=== PATIENT | male | born 1960 | race Caucasian/White ===

== ENCOUNTER 2020-06-24 09:16 | Outpatient (REF) | payer OTHER, SELFPAY ==
--- NOTE | 2020-06-24 | US_ITS ---
EXAMINATION: COLOR-FLOW DUPLEX IMAGING OF THE BILATERAL LOWER EXTREMITY ARTERIAL SYSTEM. VELOCITY MEASUREMENTS THROUGHOUT THE FEMORAL ARTERIES WITH ANKLE-BRACHIAL PERIPHERAL ARTERIAL TESTING. Interventional Radiologist: El Brooks M.D., F.S.I.R., F.A.C.R. CLINICAL INFORMATION: This is a 60-year-old male with bilateral claudication. Peripheral arterial disease. RIGHT FEMORAL RUNOFF VELOCITIES: The right common femoral artery measures 97 cm/s and triphasic. The right profunda femoral artery is 59 cm/s and is triphasic. Right proximal superficial femoral artery measures 104 cm/s and triphasic. Mid superficial femoral artery is 104 cm/s and triphasic. Distal right superficial femoral artery measures 73 cm/s and is triphasic. Right popliteal velocity measures 72 cm/s and is triphasic. The posterior tibial artery velocity measures 118 cm/s and was monophasic. LEFT FEMORAL RUNOFF VELOCITIES: The left common femoral artery measures 84 cm/s and triphasic. The left profunda femoral artery is 53 cm/s and is triphasic. Left proximal superficial femoral artery measures 93 cm/s and triphasic. Mid superficial femoral artery is 99 cm/s and triphasic. Distal left superficial femoral artery measures 61 cm/s and is triphasic. Left popliteal velocity measures 67 cm/s and is triphasic. The posterior tibial artery velocity measures 101 cm/s and was monophasic. US/US arterial duplex LE BI IMPRESSION: 1. Normal bilateral resting peripheral arterial testing without evidence of hemodynamically significant stenosis.
== END 2020-06-24 09:17 | disposition home or self-care (01) ==
LOC: HO.US 09:16
PROVIDERS: PCP Family Medicine; Visit Provider Family Medicine
DX: M79.604 Pain in right leg (principal); M79.605 Pain in left leg
CPT/HCPCS: 93925

== ENCOUNTER 2020-09-08 22:18 | Emergency (ER) | payer OTHER, SELFPAY ==
[2020-09-08 22:26] VITALS: BP 156/90; BP 200/100; PULSE 86; PULSE 90; RESP 20; TEMP 37.1; O2SAT 100; O2SAT 98; BMI 26.6
--- NOTE | 2020-09-08 22:44 | ED_ITS ---
HPI - General Adult General Chief complaint: General Medical Stated complaint: [facility] Time Seen by Provider: 09/08/20 22:25 Source: patient and EMS Mode of arrival: EMS Limitations: no limitations History of Present Illness HPI narrative: Patient comes to emergency room by EMS. According to EMS, they were called by [employer] police as the patient fell asleep in the [employer] drive-through. Patient states that he was hungry, the line was taking too long and he dozed off. Initially, patient denied using drugs or alcohol. Patient has a small bleeding side over his right hand, I asked the patient if he injected any drugs, patient states he might have used heroin. Patient did not get Narcan, patient is awake, alert, normal vitals and cooperative. Patient denies suicidal or homicidal ideation MD complaint: OD Related Data Previous Rx's Medication Instructions Recorded tamsulosin 0.4 mg capsule 0.4 mg PO DAILY #30 cap 07/26/20 Allergies Allergy/AdvReac Type Severity Reaction Status Date / Time No Known Allergies Allergy Verified 09/08/20 22:26 [No Known Allergies*] Review of Systems Review of Systems: Constitutional : No Weight loss, No Fever, No Chills, No Night Sweats, No Fatigue, No Malaise ENT/Mouth : No Hearing loss, No Ear Pain, No Nasal Congestion, No Sinus Pain, No Hoarseness, No sore throat, No Rhinorrhea, No Swallowing Difficulty Eyes: No Eye Pain, No Swelling, No Redness, No Foreign Body, No Discharge, No Vision Changes Cardiovascular : No Chest Pain, No SOB, No Dyspnea on Exertion, No Orthopnea, No Edema, No Palpitations Respiratory : No Cough, No Sputum, No Wheezing, No Smoke Exposure, No Dyspnea Gastrointestinal : No Nausea, No Vomiting, No Diarrhea, No Constipation, No abdominal Pain, No Hematochezia, No Melena Genitourinary : no irregular bleeding, No Dysuria, No Urinary Frequency, No Hematuria, No Urinary Incontinence, No Urgency, No Flank Pain, No Urinary Flow Changes, No Hesitancy Musculoskeletal : No joint pain, No Myalgias, No Joint Swelling Skin : No Skin Lesions, No rash Neuro : No Weakness, No Numbness, No Paresthesias, No Loss of Consciousness, No Dizziness, No Headache Psych : No Anxiety/Panic, No Depression, No SI/HI, possible drug abuse Heme/Lymph: No Bruising, No Bleeding,No Lymphadenopathy Endocrine : No Polyuria, No Polydipsia, No Temperature Intolerance [facility] Past Medical History Medical History (Updated 09/09/20 @ 00:04 by Silvia Redman MD) Anxiety Hypertension Substance abuse Surgical History (Updated 09/08/20 @ 22:30 by Marge Vega) H/O prostatectomy Social History Social History Alcohol intake: never Smoking Status: Former smoker Smoked in Last 30 Days: No Use of substances other than those prescribed or required for medical reasons: No Advance Directives: No Advance Directives Information Provided: Yes Physical Exam Vital Signs: Vital Signs: Last Vital Signs Temp 98.8 F 09/08/20 22:26 Pulse 86 09/08/20 22:26 Resp 20 09/08/20 22:26 BP 156/90 H 09/08/20 22:26 Pulse Ox 100 09/08/20 22:26 Body Mass Index 26.6 Appearance: Alert. Oriented X3. No acute distress. Eyes: Pupils equal, round and reactive to light. ENT: Pharynx normal. Neck: Normal inspection. Neck supple. No lymph nodes noted. No crepitus CVS: Normal heart rate and rhythm. Pulses normal. Normal S1 and S2 Respiratory: No respiratory distress. Breath sounds normal. No Wheezing. No rales Abdomen: Soft and nontender. No rigidity. No distention. good BS x4 Skin: Skin warm and dry. There is a needle track alonzo on his right hand dorsal aspect Extremities: No lower extremity edema. No lower extremity edema. No Lacerations. No Rash Neuro: Oriented X 3. No motor deficit. No sensory deficit. Moving all extermities. No slurred speech. Course Course Course Narrative: Patient remains alert, calm and cooperative, oxygen saturation 94% and above. Patient did not receive Narcan. Patient ready for discharge Discharge Plan Discharge Clinical Impression: Overdose Qualifiers: Encounter type: initial encounter Injury intent: accidental or unintentional Qualified Code(s): T50.901A - Poisoning by unspecified drugs, medicaments and biological substances, accidental (unintentional), initial encounter Patient Disposition: Home, Self-Care Instructions: Adult Overdose (ED) Additional Instructions: Please stop using drugs. Please follow-up with your primary care physician tomorrow. If you have any worsening or new symptoms, please return to the emergency room or call 911 Prescriptions: No Action tamsulosin 0.4 mg capsule 0.4 mg PO DAILY Qty: 30 RF: 6
--- NOTE | 2020-09-08 23:10 | PC.NURSE ---
SECURITY TAKING BELONGING TO [employer].
[2020-09-09 00:59] VITALS: BP 136/82; PULSE 85; RESP 16; TEMP 37.1; O2SAT 97
== END 2020-09-09 01:00 | disposition home or self-care (01) ==
PROVIDERS: Emergency Provider Emergency Medicine
DX: T40.1X1A Poisoning by heroin, accidental (unintentional), initial encounter (principal); Y92.9 Unspecified place or not applicable; Z87.891 Personal history of nicotine dependence; Z71.51 Drug abuse counseling and surveillance of drug abuser
CPT/HCPCS: 99284

== ENCOUNTER 2021-03-13 12:40 | Emergency (ER) | payer OTHER, SELFPAY ==
[2021-03-13 12:47] VITALS: BP 152/88; PULSE 96; RESP 18; TEMP 36.6; O2SAT 99; BMI 26.4
[2021-03-13 12:50] VITALS: BP 164/77; PULSE 106
--- NOTE | 2021-03-13 12:55 | PC.NURSE ---
security called to do supervisor policy change clerks of patient
--- NOTE | 2021-03-13 13:20 | PC.NURSE ---
patient a&ox3, calm/cooporative, pt has drank 2 cups water, pt requested brothers phone number to call him for a ride when he gets discharged, will continue to monitor.
--- NOTE | 2021-03-13 13:43 | MHC.RECOVSUP ---
Recovery Support note: Patient is a 60 year old Wallisian speaking male who presented to [facility] via EMS after an accidental overdose. This senior grant writer met with patient to discuss his substance use and recovery support. Patient reports he used one bag of heroin. Discussed with patient the danger inherent in heroin use and the risk of overdose due to fentanyl. Patient acknowledged. Patient reports he does not want to use again after this experience. Patient reports he is prescribed Suboxone through the [facility] and he wanted to know when he could take his next dose. Encouraged patient to wait until tomorrow morning and take it after 7AM. Patient acknowledged. Patient reports he is prescribed 8mgs. Encouraged patient to be honest with his prescriber and discuss this situation with them. Encouraged patient to reach out to supports in the community.
--- NOTE | 2021-03-13 14:11 | ED.OVERDOSE ---
HPI - Overdose General Chief Complaint: Overdose Stated Complaint: UNRESP BEHIND THE WHEEL,4MG NARCAN W/GOOD RESULT Time Seen by Provider: 03/13/21 14:11 Source: patient Mode of arrival: ambulatory Limitations: no limitations History of Present Illness HPI Narrative: 60-year-old male presents emergency department after opiate overdose. Patient states he has been clean for some time he found a bag and snorted. Patient was found unresponsive in his car he denies SI HI or tried to hurt himself he was not wanting help with his drug abuse he states he has some of that he talks to already feels comfortable going home. complaint: accidental overdose Related Data Previous Rx's Medication Instructions Recorded tamsulosin 0.4 mg capsule 0.4 mg PO DAILY #30 cap 02/21/21 Allergies Allergy/AdvReac Type Severity Reaction Status Date / Time No Known Allergies Allergy Verified 09/08/20 22:26 [No Known Allergies*] Review of Systems Review of Systems: Review of systems: General: Patient denies any fever chills recent illness or falls Musculoskeletal: Denies back pain or body aches or other injuries HEENT: denies headache, runny nose, ear pain Respiratory: denies shortness of breath, cough Cardiovascular: no chest pain or palpitations : denies dysuria, frequency Abdomen: no nausea vomiting denies abdominal pain Extremities: no swelling, no pain Skin: no diaphoresis Yes all other systems are reviewed and are negative [facility] Past Medical History Medical History (Updated 03/13/21 @ 14:13 by Avinash Burton DO) Anxiety Hypertension Substance abuse Surgical History H/O prostatectomy Social History Social History Alcohol intake: never Patient Tobacco Use Status: Never used Tobacco Use of substances other than those prescribed or required for medical reasons: Yes Substance Use Type: Heroin Substance Use Frequency: Occasionally Last Used Substance: Just Prior to Admission Advance Directives: No Advance Directives Information Provided: Yes Physical Exam Vital Signs: Vital Signs: Last Vital Signs Temp 97.8 F 03/13/21 12:47 Pulse 96 03/13/21 12:47 Resp 18 03/13/21 12:47 BP 152/88 H 03/13/21 12:47 Pulse Ox 99 03/13/21 12:47 Body Mass Index 26.4 General: Well-appearing well-nourished in no signs of distress HEENT: Normocephalic atraumatic Neck: No signs of JVD, no masses no tenderness or lymphadenopathy Cardiovascular: Regular rate and rhythm Respiratory: Clear to auscultation bilaterally Abdomen: Soft nontender no masses Extremities: Normal pedal pulses no signs of edema Skin: Dry warm no rashes Back: No tenderness full ROM MDM - Overdose MDM Narrative Medical decision making narrative: Patient has been here for almost 2 hours waiting to be seen patient vitals have been normal patient is not hypoxic he looks well at this time I will discharge home. Differential Diagnosis Differential diagnosis: Likely drug overdose Discharge Plan Discharge Clinical Impression: Poisoning by opiate or related narcotic, Drug overdose Patient Disposition: Home, Self-Care Instructions: Narcotic Use Disorder (ED), Opioid Safety (ED) Additional Instructions: Please call follow-up if you have any other concerns please do not hesitate to come back to emergency department. Prescriptions: No Action tamsulosin 0.4 mg capsule 0.4 mg PO DAILY Qty: 30 RF: 4
== END 2021-03-13 15:39 | disposition home or self-care (01) ==
PROVIDERS: Emergency Provider Student in an Organized Health Care Education/Training Program; PCP Family Medicine
DX: T40.1X1A Poisoning by heroin, accidental (unintentional), initial encounter (principal); Y92.9 Unspecified place or not applicable; F11.10 Opioid abuse, uncomplicated; Z71.51 Drug abuse counseling and surveillance of drug abuser
CPT/HCPCS: 99284

== ENCOUNTER 2021-03-29 12:51 | Outpatient (REF) | payer OTHER, SELFPAY ==
--- NOTE | ~2021-03-29 | XR_ITS ---
EXAMINATION: XR SHOULDER, RIGHT CLINICAL INFORMATION: Right shoulder pain. COMPARISON: None TECHNIQUE: AP external rotation, Grashey, scapular Y, and axillary views of the right shoulder. FINDINGS: No acute fracture or dislocation. Small acromioclavicular and glenohumeral marginal osteophytes. No osseous erosion. No abnormal soft tissue calcification. XR/XR shoulder RT min 2V IMPRESSION: Mild acromioclavicular and glenohumeral osteoarthritis.
== END 2021-03-29 12:52 | disposition home or self-care (01) ==
LOC: HO.XRAY 12:51
PROVIDERS: PCP Family Medicine; Visit Provider Student in an Organized Health Care Education/Training Program
DX: M25.511 Pain in right shoulder (principal)
CPT/HCPCS: 73030; 99202

== ENCOUNTER → 2021-07-18 15:02 | Outpatient (BNVA) | payer OTHER, SELFPAY | PROVIDERS: PCP Family Medicine; Referring Provider Family Medicine; Visit Provider Surgery | DX: R93.2 Abnormal findings on diagnostic imaging of liver and biliary tract (principal) | CPT/HCPCS: 99212 ==

== ENCOUNTER 2021-08-24 07:42 | Outpatient (REF) | payer OTHER, SELFPAY ==
--- NOTE | ~2021-08-24 | US_ITS ---
EXAMINATION: US COMPLETE ABDOMEN WITH LIVER ELASTOGRAPHY CLINICAL INFORMATION: Hepatitis C. COMPARISON: Previous abdominal ultrasounds, most recent 11/03/[address] of the abdomen and pelvis 03/01/2019. TECHNIQUE: Real-time imaging of the abdominal viscera. Noninvasive ultrasound liver fibrosis assessment is performed using Christopher ElastPQ point quantification shear wave elastography (2D-SWE) with a C5-2 MHz transducer. Multiple elastography samples are obtained. FINDINGS: PANCREAS: The visualized pancreatic head and body are normal in appearance. The remainder of the pancreas is obscured from visualization by the overlying bowel gas. ABDOMINAL AORTA: The proximal, middle, and distal aortic segments are normal in caliber. INFERIOR VENA CAVA: Visualized portions are normal. LIVER: Liver echotexture is increased. The liver demonstrates normal size and contour. No focal lesion or intrahepatic biliary duct dilatation. The right lobe measures 14.5 cm in length. The left lobe measures 10.7 cm in length. Portal flow is normal/hepatopetal. Shear wave liver elastography median stiffness is 1.7 m/s (reference: Normal median stiffness is 1.3 m/s or less). IQR/median stiffness to assess sampling precision is 0.12 (reference: Good quality data set is IQR/median stiffness of 0.15 or less). GALLBLADDER: Gallbladder is normal in size. No gallstones are seen. The gallbladder wall is normal in thickness. There are several small echogenic densities adjacent to the gallbladder wall, largest measuring 2 mm, suggestive of small gallbladder wall polyps. COMMON BILE DUCT: Normal in caliber measuring 0.6-0.8 cm in diameter. RIGHT KIDNEY: Normal. No hydronephrosis. No renal calculi or focal parenchymal lesions. The kidney measures 11 cm in maximum dimension. LEFT KIDNEY: There is a 1 cm cyst in the lateral mid pole. No hydronephrosis. No renal calculi or focal mass lesions. The kidney measures 11 cm in maximum dimension. SPLEEN: Normal. The spleen measures 11 cm in maximum dimension. FREE FLUID: None. US/US abdomen comp w elastography IMPRESSION: 1. Abdomen: Slightly echogenic liver. Probable small gallbladder wall polyps. Small right renal cyst. Limited visualization of the tail of the pancreas. 2. Liver Elastography: Adequate liver sampling. Borderline elevated liver stiffness questionable for compensated advanced chronic liver disease but need further test for confirmation. REFERENCE: Society of Radiologists in Ultrasound Liver Stiffness Thresholds (2020): LIVER STIFFNESS THRESHOLDS: *Liver Stiffness equal or less than 1.3 m/s: High probability of being normal. *Liver Stiffness less than 1.7 m/s: In the absence of other known clinical signs, rules out compensated advanced chronic liver disease. *Liver Stiffness 1.7-2.1 m/s: Suggestive of compensated advanced chronic liver disease but need further test for confirmation. *Liver Stiffness over 2.1 m/s: Rules in compensated advanced chronic liver disease. *Liver Stiffness over 2.4 m/s: Suggestive of clinically significant portal hypertension. QUALITY OF DATA SET: *IQR/Median value equal or less than 0.15 implies a quality data set. *IQR/Median value over 0.15 implies a poor quality data set. SIGNIFICANT CHANGE FROM PRIOR EXAM: Significant change if liver stiffness measurement is 10% or greater from prior exam. OTHER CONSIDERATIONS: The stage of liver fibrosis may be overestimated in the setting of acute hepatitis, liver inflammation, elevated liver function tests, hepatic vascular congestion, obstructive cholestasis, non-fasting state, and infiltrative diseases such as amyloidosis and lymphoma. In some patients with NAFLD, the liver stiffness thresholds for compensated advanced chronic liver disease may be lower. In causes other than viral hepatitis and NAFLD, liver stiffness thresholds are not well established.
== END 2021-08-24 07:43 | disposition home or self-care (01) ==
LOC: HO.US 07:42
PROVIDERS: PCP Family Medicine; Visit Provider Family Medicine
DX: B17.11 Acute hepatitis C with hepatic coma (principal); K83.8 Other specified diseases of biliary tract
CPT/HCPCS: 76705; 76981

== ENCOUNTER → 2021-11-29 14:08 | Outpatient (BNVA) | payer OTHER, SELFPAY | PROVIDERS: PCP Family Medicine; Visit Provider Urology | DX: N40.1 Benign prostatic hyperplasia with lower urinary tract symptoms (principal); N13.8 Other obstructive and reflux uropathy; N20.0 Calculus of kidney | CPT/HCPCS: 51798; 99212 ==

== ENCOUNTER → 2021-12-13 15:15 | Outpatient (BNVA) | payer OTHER, SELFPAY | PROVIDERS: PCP Family Medicine; Referring Provider Family Medicine; Visit Provider Nurse Practitioner | DX: Z86.19 Personal history of other infectious and parasitic diseases (principal); F11.20 Opioid dependence, uncomplicated; Z86.010 Personal history of colon polyps | CPT/HCPCS: 99202 ==

== ENCOUNTER 2021-12-14 12:28 | Outpatient (REF) | payer OTHER, SELFPAY ==
[2021-12-14 12:40] LABS: MANUAL DIFF FLAG NO
[2021-12-14 13:30] LABS: Basophils Percent Auto 0.4 % (0-2); Eosinophils Absolute Auto 0.1 X10*3/uL (0.0-0.4); Eosinophils Percent Auto 0.7 % (0-4); Hematocrit 44.3 % (42.0-52.0); Hemoglobin 14.4 g/dl (14.0-18.0); Imm Gran Abs Auto 0.03 X10*3/uL (0.00-0.03); Imm Gran Pct Auto 0.3 % (0.0-0.4); Lymphocytes Absolute Auto 1.9 X10*3/uL (1.2-4.9); Lymphocytes Percent Auto 20.4 % (20-40); Mean Corpuscular HGB Conc 32.5 g/dl (31.0-36.0); Mean Corpuscular Volume 86.2 fL (80.0-98.0); Mean Platelet Volume 10.3 fL (9.4-12.4); Monocytes Absolute Auto 0.5 X10*3/uL (0.1-1.2); Monocytes Percent Auto 5.7 % (2-11); Neutrophils Absolute Auto 6.6 x10*3/uL (2.0-8.3); Neutrophils Percent Auto 72.5 % (45-73); Platelet Count 318 X10*3/uL (160-400); Red Blood Count 5.14 X10*6/uL (4.60-5.80); Red Cell Distribution Width 13.1 % (11.0-16.0); White Blood Count 9.1 X10*3/uL (4.8-10.8)
[2021-12-14 13:42] LABS: Alanine Aminotransferase 53 U/L (0-40); Alkaline Phosphatase 72 U/L (39-117); Anion Gap 15 (12-20); Aspartate Amino Transferase 36 U/L (5-37); Bilirubin Total 0.8 mg/dL (0.0-1.0); Blood Urea Nitrogen 11 mg/dL (9-16); Calcium 10.5 mg/dL (8.4-10.2); Carbon Dioxide 28 mmol/L (22-29); Chloride 101 mmol/L (96-108); Estimated Glomerular Filt Rate > 60; Glucose Random 120 mg/dL (60-115); Potassium 4.4 mmol/L (3.3-5.1); Sodium 140 mmol/L (135-145); Total Protein 8.8 g/dL (6.5-8.0)
[2021-12-15 08:41] LABS: HBS Num1 49.69 mIU/mL (0-7.99); HBc Num1 8.82 S/CO (0.00-0.79); HIV AB/AG Nonreactive (Nonreactive); HIV Num 1 0.07 S/CO (0.00-0.99); ~Hepatitis B Surface Antibody REACTIVE (Nonreactive)
[2021-12-15 10:43] LABS: HBc Num2 8.88 S/CO; HBc Num3 9.11 S/CO; Hepatitis B Core Antibody Reactive (Nonreactive)
[2021-12-16 10:52] LABS: Hepatitis B Viral DNA Qn - cp <1.00 NOT DETECTED Log IU/mL (NOT DETECTED); Hepatitis B Viral DNA Qn-IU/mL <10 NOT DETECTED IU/mL (NOT DETECTED)
== END 2021-12-14 12:29 | disposition home or self-care (01) ==
LOC: HO.LAB 12:28
PROVIDERS: PCP Family Medicine; Visit Provider Nurse Practitioner
DX: Z11.4 Encounter for screening for human immunodeficiency virus [HIV] (principal); D12.6 Benign neoplasm of colon, unspecified; Z87.898 Personal history of other specified conditions
CPT/HCPCS: 36415; 80053; 85025; 86704; 86706; 87389; 87517

== ENCOUNTER 2022-03-10 12:34 | Outpatient (REF) | payer OTHER, SELFPAY ==
--- NOTE | ~2022-03-10 | US_ITS ---
EXAMINATION: US ABDOMEN COMPLETE CLINICAL INFORMATION: Acute hepatitis C. COMPARISON: Ultrasound abdomen complete 08/24/2021. Renal ultrasound 04/14/2020. CT abdomen and pelvis 03/01/2019. TECHNIQUE: Real-time imaging of the abdominal viscera. FINDINGS: PANCREAS: The visualized pancreas is within normal limits. ABDOMINAL AORTA: The proximal, mid, and distal segments are normal in caliber. INFERIOR VENA CAVA: Visualized portions are normal. LIVER: The liver is normal in size. The liver contour is normal. Equivocal mildly increased echogenicity. No focal hepatic lesion. There is no intrahepatic biliary duct dilatation seen. GALLBLADDER: Nonmobile 0.3 cm gallbladder stone versus polyp. No evidence of gallbladder wall thickening or pericholecystic fluid. COMMON BILE DUCT: Normal in caliber measuring 0.7 cm in diameter. RIGHT KIDNEY: Normal. No hydronephrosis. No renal calculi or focal parenchymal lesions. The kidney measures 11.0 cm in maximum dimension. LEFT KIDNEY: Simple 1.2 cm cyst in the mid pole for which no imaging follow-up is recommended. No hydronephrosis or renal calculi. The kidney measures 11.0 cm in maximum dimension. SPLEEN: Normal. The spleen measures 9.3 cm in maximum dimension. FREE FLUID: None. US/US abdomen complete IMPRESSION: Mild increased liver parenchyma echogenicity when compared to the attenuation of the adjacent right renal cortex which could be seen with hepatic steatosis or early hepatocellular disease. Nonmobile 0.3 cm adherent gallbladder stone versus polyp, similar to minimally increased in size from 0.2 cm. Recommend attention on follow-up in subsequent images to ensure stability.
== END 2022-03-10 12:35 | disposition home or self-care (01) ==
LOC: HO.US 12:34
PROVIDERS: Visit Provider Family Medicine
DX: B17.10 Acute hepatitis C without hepatic coma (principal)
CPT/HCPCS: 76700

== ENCOUNTER 2022-06-29 13:01 | Outpatient (AMB) | payer OTHER, SELFPAY ==
--- NOTE | 2022-06-26 13:01 | MHC.OFFVIS ---
Intake Intake Visit Reasons: 6 month follow up Intake Note: Patient is present for telephone follow up Urology Medication: Tamsulosin Blood Thinner: Aspirin Help Desk Agent Required: Yes Information Interpreted: non-clinical & clinical Allergies No Known Allergies [No Known Allergies*] Allergy (Verified 11/02/22 09:37) HPI HPI Comments History of Present Illness Details Bernardo is a pleasant Czech-speaking male. He is a patient of . He is seen for following urologic conditions - nephrolithiasis - lower urinary tract symptoms Czech translation provided in office by qualified medical record retrieval specialist Telemedicine Evaluation 15 min Consultation [employer] Yaneli Video attempted Lower urinary tract symptoms Longstanding Postvoid dribbling On tamsulosin Given information regarding Kegel exercises Prior PSA 0.18 Nephrolithiasis 2019 procedure with calcium oxalate stones Follow-up ultrasound No recent imaging Review in 6 months PFSH Medical History Bipolar disorder Diabetes Hepatitis C Abnormal CT scan, gallbladder Substance abuse Anxiety Hypertension Surgical History Hx of cystoscopy H/O colonoscopy History of cholecystectomy H/O prostatectomy Social History Alcohol intake: never Patient Tobacco Use Status: Former Tobacco user Tobacco use type: Cigarette Smoked in Last 30 Days: No Use of substances other than those prescribed or required for medical reasons: No Substance Use Type: Heroin Advance Directives: No Review of Systems Const All systems reviewed & are unremarkable except as noted in HPI and below Reports no additional complaints Resp Reports no additional complaints GI Reports no additional complaints Reports as per HPI Musc Reports no additional complaints Physical Exam Telemedicine evaluation Appropriate responses Regular breathing rate and rhythm HEENT Head: Yes normal to inspection Ears: hearing grossly normal bilaterally Eyes General: appearance normal, both eyes and all related structures Neck Neck: Yes normal visual inspection Chest Chest palpation & inspection: normal inspection of the chest Resp Effort & Inspection: normal respiratory effort and able to speak in complete sentences Assessment & Plan Assessment & Plan (1) BPH w urinary obs/LUTS: Code(s): N40.1 - Benign prostatic hyperplasia with lower urinary tract symptoms; N13.8 - Other obstructive and reflux uropathy (2) Nephrolithiasis: Code(s): N20.0 - Calculus of kidney Plan Imaging Six-month follow-up Patient Instructions: Imaging studies, laboratory and physical exam results were discussed and reviewed in detail. No major barriers to patient understanding were identified. An opportunity to ask questions regarding the treatment plan was provided. All questions were answered. The patient expressed understanding and agreement with the above treatment plan. The patient is aware they should contact our office by phone for worsening of their current condition or the appearance of new urologic symptoms. Compliance is encouraged with any medications and followup testing that is ordered. It is a privilege to participate in the urologic care of your patient. If you have any questions or concerns regarding treatment for the above conditions, or other urologic issues, please do not hesitate to contact me. The office telephone contact is [phone]. This note is constructed using voice recognition software. While every effort has been made to ensure accuracy it infrastructure engineer errors may have been included. Yours sincerely, Dr Issac Zelaya MD, [facility] - Urology Providers of Expert, Compassionate Care for the Genitourinary System Telehealth Telehealth Location of provider rendering services: practice address Location of patient: address on file Patient Identification confirmed using: Name, : Yes Telehealth method: voice only Patient verbally consented to treatment: Yes Patient verbally consented to billing insurance company: Yes Patient informed of any privacy concerns related to visit: Yes Coding Level of Care Code Tele Est Pt Level 3 (12584) Diagnoses BPH w urinary obs/LUTS N40.1; N13.8 Nephrolithiasis N20.0
== END 2022-06-29 14:00 | disposition left against medical advice (07) ==
LOC: HO.HUSH 13:02
PROVIDERS: PCP Family Medicine; Visit Provider Urology
DX: N40.1 Benign prostatic hyperplasia with lower urinary tract symptoms (principal); N13.8 Other obstructive and reflux uropathy; N20.0 Calculus of kidney
CPT/HCPCS: 99442; 99499

== ENCOUNTER 2022-09-04 07:19 | Outpatient (REF) | payer OTHER, SELFPAY ==
--- NOTE | ~2022-09-04 | US_ITS ---
EXAMINATION: US ABDOMEN COMPLETE CLINICAL INFORMATION: Hepatitis C. COMPARISON: Ultrasound abdomen complete 03/10/2022 and 08/24/2021. CT abdomen and pelvis 03/01/2019. TECHNIQUE: Real-time imaging of the abdominal viscera. FINDINGS: PANCREAS: Normal. ABDOMINAL AORTA: The proximal, mid, and distal segments are normal in caliber. INFERIOR VENA CAVA: Visualized portions are normal. LIVER: The liver is normal in size. The liver contour is normal. There is moderately increased liver parenchymal echogenicity echogenicity. No focal hepatic lesion. There is no intrahepatic biliary duct dilatation seen. GALLBLADDER: A 2 mm nonmobile polyp is seen. The gallbladder is physiologically distended without evidence of stones, sludge, wall thickening or pericholecystic fluid. COMMON BILE DUCT: Normal in caliber measuring 0.6 cm in diameter. RIGHT KIDNEY: Normal. No hydronephrosis. No renal calculi or focal parenchymal lesions. The kidney measures 10.2 cm in maximum dimension. LEFT KIDNEY: At the interpolar aspect, a 1.5 cm maximal diameter anechoic, simple cyst is seen. At the lower pole, 4 mm and 4 mm nonobstructing calculi are seen, with twinkle artifact. The kidney measures 10.1 cm in maximum dimension. SPLEEN: Normal. The spleen measures 9.8 cm in maximum dimension. FREE FLUID: None. US/US abdomen complete IMPRESSION: 1. There is mild increase in hepatic echotexture, consistent with fatty infiltration or hepatocellular disease. Please correlate clinically. Provided history of hepatitis C noted. No focal hepatic mass or intrahepatic biliary dilatation is seen. 2. A 2 mm nonmobile gallbladder polyp is incidentally noted. 3. There are nonobstructing left renal calculi, as detailed. 4. A 1.5 cm benign, simple left renal cyst is seen, for which no imaging follow-up is recommended.
== END 2022-09-04 07:20 | disposition home or self-care (01) ==
LOC: HO.US 07:19
PROVIDERS: PCP Family Medicine; Visit Provider Family Medicine
DX: B18.2 Chronic viral hepatitis C (principal)
CPT/HCPCS: 76700

== ENCOUNTER 2022-10-20 09:15 | Day surgery (SDC) | payer OTHER, SELFPAY ==
[2022-10-17 14:45] VITALS: BMI 26.6
--- NOTE | 2022-10-19 13:52 | P.CONAN_ITS ---
Documented by User: Joslyn Varela NP 10/19/22 13:54 HPI - Anesthesia Eval Consult details Narrative: 62yo M for Colonoscopy Suboxone daily PMFSH Active Problems Active Problems: All Active Problems (Updated 10/17/22 @ 14:42 by Haylee Mcclellan, RN) Shoulder pain, right (Acute) BPH w urinary obs/LUTS (Acute) Nephrolithiasis (Acute) Hepatitis C infection (Acute) Hx of intravenous drug use, in remission (Acute) Opiate dependence, continuous (Acute) HTN (hypertension), benign (Acute) Diabetes (Acute) Bipolar disorder (Acute) Smoker (Acute) Urinary incontinence (Acute) Leg paresthesia (Acute) Genital herpes (Acute) Tubular adenoma of colon (Acute) Abnormal CT scan, gallbladder (Acute) Past Medical History Medical History (Updated 10/17/22 @ 14:42 by Haylee Mcclellan RN) Abnormal CT scan, gallbladder Anxiety Bipolar disorder Diabetes Hepatitis C Hypertension Substance abuse Surgical History Surgical History (Updated 10/17/22 @ 14:41 by Haylee Mcclellan RN) H/O colonoscopy H/O prostatectomy History of cholecystectomy Hx of cystoscopy Social History Social History Alcohol intake: never Patient Tobacco Use Status: Former Tobacco user Tobacco use type: Cigarette Use of substances other than those prescribed or required for medical reasons: No Substance Use Type: Heroin Are you DNR?: No Advance Directives: No Advance Directives Information Provided: Yes Recently lost weight without trying: No Nutrition Risks: No Nutritional Risk Meds Allergies Allergy/AdvReac Type Severity Reaction Status Date / Time No Known Allergies Allergy Verified 06/26/22 13:03 [No Known Allergies*] Home Medications Medication Instructions Recorded Confirmed Last Taken Type aspirin 81 mg tablet,delayed 81 mg PO DAILY 03/29/21 07/18/21 Unknown History release (Adult Low Dose Aspirin) atorvastatin 20 mg tablet 20 mg PO DAILY 03/29/21 07/18/21 Unknown History buprenorphine 8 mg-naloxone 2 mg 1 film sublingual .twice a day 03/29/21 07/18/21 Unknown History sublingual film (Suboxone) cholecalciferol (vitamin D3) 50 50 mcg PO DAILY 03/29/21 07/18/21 Unknown History mcg (2,000 unit) capsule docusate sodium 100 mg capsule 200 mg PO BID 03/29/21 07/18/21 Unknown History (Colace) hydrochlorothiazide 25 mg tablet 25 mg PO DAILY 03/29/21 07/18/21 Unknown History lisinopril 10 mg tablet 10 mg PO DAILY 03/29/21 07/18/21 Unknown History metformin 500 mg tablet 500 mg PO DAILY 03/29/21 07/18/21 Unknown History naloxone 4 mg/actuation nasal 1 spray intranasal Q2M 03/29/21 07/18/21 Unknown History spray (Narcan) quetiapine 100 mg tablet (Seroquel) 100 mg PO BEDTIME 03/29/21 07/18/21 Unknown History alcohol swabs (Alcohol Prep Pads) 0 pad topical 11/29/21 Unknown History blood sugar diagnostic (FreeStyle #10 ea 11/29/21 Unknown History Lite Strips) buprenorphine 8 mg-naloxone 2 mg tab sublingual 11/29/21 Unknown History sublingual tablet cholecalciferol (vitamin D3) 50 50 mcg PO QAM 11/29/21 Unknown History mcg (2,000 unit) tablet gabapentin 100 mg capsule 100 mg PO TID 11/29/21 Unknown History lancets 33 gauge (TRUEplus Lancets) #100 ea 11/29/21 Unknown History sofosbuvir 400 mg-velpatasvir 100 1 tab PO DAILY 11/29/21 Unknown History mg tablet triamcinolone acetonide 0.1 % 1 appl topical BID-TID 11/29/21 Unknown History topical cream blood-glucose meter (FreeStyle #1 ea 06/26/22 Unknown History [place] Lite kit) Exam Exam Date and Time: October 19, 2022 1352 Height,Weight and Vital Signs: Height 5 ft 4 in Weight 70.307 kg Assessment and Plan Assessment Anesthesia Assessment: Chart Reviewed Documented by User: Sandra Hagan MD 10/20/22 10:35 [facility] Past Medical History Medical History (Updated 10/17/22 @ 14:42 by Haylee Mcclellan RN) Abnormal CT scan, gallbladder Anxiety Bipolar disorder Diabetes Hepatitis C Hypertension Substance abuse Family History Family history of problems with anesthesia: No Surgical History Surgical History (Updated 10/17/22 @ 14:41 by Haylee Mcclellan RN) H/O colonoscopy H/O prostatectomy History of cholecystectomy Hx of cystoscopy History of Problems with Anesthesia: No Social History Social History Alcohol intake: never Patient Tobacco Use Status: Former Tobacco user Tobacco use type: Cigarette Use of substances other than those prescribed or required for medical reasons: No Substance Use Type: Heroin Are you DNR?: No Advance Directives: No Advance Directives Information Provided: Yes Recently lost weight without trying: No Nutrition Risks: No Nutritional Risk Meds Allergies Allergy/AdvReac Type Severity Reaction Status Date / Time No Known Allergies Allergy Verified 06/26/22 13:03 [No Known Allergies*] Home Medications Medication Instructions Recorded Confirmed Last Taken Type aspirin 81 mg tablet,delayed 81 mg PO DAILY 03/29/21 07/18/21 Unknown History release (Adult Low Dose Aspirin) atorvastatin 20 mg tablet 20 mg PO DAILY 03/29/21 07/18/21 Unknown History buprenorphine 8 mg-naloxone 2 mg 1 film sublingual .twice a day 03/29/21 07/18/21 Unknown History sublingual film (Suboxone) cholecalciferol (vitamin D3) 50 50 mcg PO DAILY 03/29/21 07/18/21 Unknown History mcg (2,000 unit) capsule docusate sodium 100 mg capsule 200 mg PO BID 03/29/21 07/18/21 Unknown History (Colace) hydrochlorothiazide 25 mg tablet 25 mg PO DAILY 03/29/21 07/18/21 Unknown History lisinopril 10 mg tablet 10 mg PO DAILY 03/29/21 07/18/21 Unknown History metformin 500 mg tablet 500 mg PO DAILY 03/29/21 07/18/21 Unknown History naloxone 4 mg/actuation nasal 1 spray intranasal Q2M 03/29/21 07/18/21 Unknown History spray (Narcan) quetiapine 100 mg tablet (Seroquel) 100 mg PO BEDTIME 03/29/21 07/18/21 Unknown History alcohol swabs (Alcohol Prep Pads) 0 pad topical 11/29/21 Unknown History blood sugar diagnostic (FreeStyle #10 ea 11/29/21 Unknown History Lite Strips) buprenorphine 8 mg-naloxone 2 mg tab sublingual 11/29/21 Unknown History sublingual tablet cholecalciferol (vitamin D3) 50 50 mcg PO QAM 11/29/21 Unknown History mcg (2,000 unit) tablet gabapentin 100 mg capsule 100 mg PO TID 11/29/21 Unknown History lancets 33 gauge (TRUEplus Lancets) #100 ea 11/29/21 Unknown History sofosbuvir 400 mg-velpatasvir 100 1 tab PO DAILY 11/29/21 Unknown History mg tablet triamcinolone acetonide 0.1 % 1 appl topical BID-TID 11/29/21 Unknown History topical cream blood-glucose meter (FreeStyle #1 ea 06/26/22 Unknown History [place] Lite kit) Exam Airway Mallampati Class: II TM Dist: >3cm Neck ROM: Full Denture: Upper Heart: rr Lungs: cta Assessment and Plan Assessment Anesthesia Assessment: Anesthesia Plan Discussed, Smoking Cess. Discussed and Chart Reviewed Final Anesthetic Review Family History of Problems with Anesthesia: No History of Problems with Anesthesia: No NPO: Yes ASA Class: II Final Preanesthetic Review: No Changes in Pt Med Stat, Meds/Allgs Chart Revie wed, Consent Obtained/Reviewed and Anes Risks/Benef Reviewed Patient Risk: Low Procedure Risk: Low Anesthetic Plan Anesthetic Plan: MAC: Disposition: Standard PACU
--- NOTE | 2022-10-20 10:06 | MHC.SHP ---
Pre-Procedural Eval Section A Date of Service: 10/20/22 Section B Chief Complaint: Benign neoplasm of colon, Relevant Family History (Specify if Yes): No Relevant Social History: None Present Medications: see Short Stay Collaborative assessment Medical History: Significant History (History of IV drug use Hepatitis C Suboxone therapy Hypertension Diabetes Bipolar disorder Genital herpes virus Smoker Chronic pain of the toes bilateral Urinary incontinence bilateral leg paresthesias) History of Previous Operations: Relevant previous surgery/procedure and date(s) (H/O colonoscopy H/O prostatectomy History of cholecystectomy Hx of cystoscopy) Allergies: Allergies Allergy/AdvReac Type Severity Reaction Status Date / Time No Known Allergies Allergy Verified 06/26/22 13:03 [No Known Allergies*] Review of Systems Sugical H&P ROS: Negative: Constitution, Cardiovascular, Respiratory, Neurological, Psychiatric, Hem-Onc, Allergic/Immunologic, Gastrointestinal, Genitourinary, Musculoskeletal, Integumentary, Endocrine and Eyes/Ears/Nose/Throat Exam Surgical H&P Exam: Normal: HEENT, Normal: Heart, Normal: Lungs, Normal: Extremities, Normal: Abdomen, Normal: Skin and Normal: Neurological Plan Diagnosis/Plan: Unchanged I have reviewed the history and physical and performed a pertinent physical examination on my patient. No changes have occurred unless specified. Time Spent With Patient Time: Total time managing care of this patient today ____ minutes.
[2022-10-20 10:13] VITALS: BMI 24.0
[2022-10-20 10:29] VITALS: BP 129/89; PULSE 86; RESP 16; TEMP 36.2; O2SAT 97
[2022-10-20 10:39] LABS: Glucose, Whole Blood 147 mg/dL (60-115)
--- NOTE | 2022-10-20 10:48 | P.CONAN_ITS ---
HPI - Anesthesia Eval Consult details Narrative: personal ho [facility] Active Problems Active Problems: All Active Problems (Updated 10/17/22 @ 14:42 by Haylee Mcclellan, RN) Shoulder pain, right (Acute) BPH w urinary obs/LUTS (Acute) Nephrolithiasis (Acute) Hepatitis C infection (Acute) Hx of intravenous drug use, in remission (Acute) Opiate dependence, continuous (Acute) HTN (hypertension), benign (Acute) Diabetes (Acute) Bipolar disorder (Acute) Smoker (Acute) Urinary incontinence (Acute) Leg paresthesia (Acute) Genital herpes (Acute) Tubular adenoma of colon (Acute) Abnormal CT scan, gallbladder (Acute) Past Medical History Medical History (Updated 10/17/22 @ 14:42 by Haylee Mcclellan, RN) Abnormal CT scan, gallbladder Anxiety Bipolar disorder Diabetes Hepatitis C Hypertension Substance abuse Family History Family history of problems with anesthesia: No Surgical History Surgical History (Updated 10/17/22 @ 14:41 by Haylee Mcclellan RN) H/O colonoscopy H/O prostatectomy History of cholecystectomy Hx of cystoscopy History of Problems with Anesthesia: No Social History Social History Alcohol intake: never Patient Tobacco Use Status: Former Tobacco user Tobacco use type: Cigarette Use of substances other than those prescribed or required for medical reasons: No Substance Use Type: Heroin Are you DNR?: No Advance Directives: No Advance Directives Information Provided: Yes Recently lost weight without trying: No Nutrition Risks: No Nutritional Risk Meds Allergies Allergy/AdvReac Type Severity Reaction Status Date / Time No Known Allergies Allergy Verified 06/26/22 13:03 [No Known Allergies*] Active Medications: Current Medications Lactated Ringer's (Lr) 1,000 mls @ 100 mls/hr IVCONT .Q10H [facility] Home Medications Medication Instructions Recorded Confirmed Last Taken Type aspirin 81 mg tablet,delayed 81 mg PO DAILY 03/29/21 07/18/21 Unknown History release (Adult Low Dose Aspirin) atorvastatin 20 mg tablet 20 mg PO DAILY 03/29/21 07/18/21 Unknown History buprenorphine 8 mg-naloxone 2 mg 1 film sublingual .twice a day 03/29/21 07/18/21 Unknown History sublingual film (Suboxone) cholecalciferol (vitamin D3) 50 50 mcg PO DAILY 03/29/21 07/18/21 Unknown History mcg (2,000 unit) capsule docusate sodium 100 mg capsule 200 mg PO BID 03/29/21 07/18/21 Unknown History (Colace) hydrochlorothiazide 25 mg tablet 25 mg PO DAILY 03/29/21 07/18/21 Unknown History lisinopril 10 mg tablet 10 mg PO DAILY 03/29/21 07/18/21 Unknown History metformin 500 mg tablet 500 mg PO DAILY 03/29/21 07/18/21 Unknown History naloxone 4 mg/actuation nasal 1 spray intranasal Q2M 03/29/21 07/18/21 Unknown History spray (Narcan) quetiapine 100 mg tablet (Seroquel) 100 mg PO BEDTIME 03/29/21 07/18/21 Unknown History alcohol swabs (Alcohol Prep Pads) 0 pad topical 11/29/21 Unknown History blood sugar diagnostic (FreeStyle #10 ea 11/29/21 Unknown History Lite Strips) buprenorphine 8 mg-naloxone 2 mg tab sublingual 11/29/21 Unknown History sublingual tablet cholecalciferol (vitamin D3) 50 50 mcg PO QAM 11/29/21 Unknown History mcg (2,000 unit) tablet gabapentin 100 mg capsule 100 mg PO TID 11/29/21 Unknown History lancets 33 gauge (TRUEplus Lancets) #100 ea 11/29/21 Unknown History sofosbuvir 400 mg-velpatasvir 100 1 tab PO DAILY 11/29/21 Unknown History mg tablet triamcinolone acetonide 0.1 % 1 appl topical BID-TID 11/29/21 Unknown History topical cream blood-glucose meter (FreeStyle #1 ea 06/26/22 Unknown History [place] Lite kit) Exam Exam Date and Time: October 20, 2022 1048 Height,Weight and Vital Signs: Height 5 ft 4 in Weight 63.503 kg Last Vital Signs Temp 97.2 F 10/20/22 10:29 Pulse 86 10/20/22 10:29 Resp 16 10/20/22 10:29 BP 129/89 10/20/22 10:29 Pulse Ox 97 10/20/22 10:29 O2 Del Method 10/20/22 10:29 Pertinent Lab Results Pertinent Lab Results: Laboratory Tests 10/20/22 10:32 POC Glucose 147 H Airway Mallampati Class: I TM Dist: >3cm Neck ROM: Full Denture: Upper Heart: rr Lungs: cta Assessment and Plan Final Anesthetic Review Family History of Problems with Anesthesia: No History of Problems with Anesthesia: No ASA Class: II Final Preanesthetic Review: No Changes in Pt Med Stat, Meds/Allgs Chart Reviewed, Consent Obtained/Reviewed and Anes Risks/Benef Reviewed Patient Risk: Low Procedure Risk: Low Anesthetic Plan Anesthetic Plan: MAC: Disposition: Standard PACU
--- NOTE | 2022-10-20 10:48 | W.PM.OPN ---
Operative Note Operative Note Date of Service: 10/20/22 Narrative: Operative Information Procedure Description: Colonoscopy Indication: screening Anesthesia: MAC COLONOSCOPY Instrument: Olympus variable stiffness ADULT scope 190L Colonoscopy Monitoring: Vital signs and clinical assessment, continuous EKG monitoring, Pulse oximetry, Carbon Dioxide monitoring and blood pressure monitoring were done throughout the procedure. Colon withdrawal time was 8 minutes. Procedure: The patient was placed in the left lateral decubitis position and pre-procedure medications were administered. After a digital rectal examination of the ano-rectum, the video colonoscope was inserted into the rectum and advanced through the colon to the cecum/TI. The colonoscope was slowly withdrawn in a retrograde panoramic fashion and the colon mucosa was carefully examined including a retroflexed view of the rectum. Findings and interventions are described below. Procedure Difficulty: easy Findings: Terminal Ileum-not intubated Cecum:normal Ascending Colon: normal Transverse Colon -normal Descending Colon:normal Sigmoid Colon: normal Rectum: Retroflexion with small internal hemorrhoids, grade I, in proximal rectum 10 mm sessile polyp removed with cold snare, kudo markings consistent with adenoma Anorectum - normal Colon preparation: [place] Bowel Preparation Scale Right colon; 0-1 Transverse colon: 1-2 Left colon; 1-2 (0 = Unprepared colon segment with mucosa not seen due to solid stool that cannot be cleared. 1 = Portion of mucosa of the colon segment seen, but other areas of the colon segment not well seen due to staining, residual stool and/or opaque liquid. 2 = Minor amount of residual staining, small fragments of stool and/or opaque liquid, but mucosa of colon segment seen well. 3 = Entire mucosa of colon segment seen well with no residual staining, small fragments of stool or opaque liquid) Impression and Post Procedure Diagnosis: polyp internal hemorrhoids Plan: High fiber diet leaflet Avoid straining at stool, epsom salts and sitz bath, anusol supps or cream Repeat Colonoscopy in 6-12 months or earlier if clinically indicated, check compliance with prep and review with patient Above findings were reviewed with the patient and relevant handouts were provided if indicated.
[2022-10-20 10:56] LABS: Amphetamine Screen Urine Not Detected (Not Detect); Barbiturates, Urine Not Detected (Not Detect); Benzodiazepines Screen Urine Not Detected (Not Detect); Cannabinoid Screen Urine POSITIVE (Not Detect); Cocaine Screen Urine Not Detected (Not Detect); Fentanyl, urine Not Detected (Not Detect); Opiate Screen Urine Not Detected (Not Detect); Phencyclidine Screen Urine Not Detected (Not Detect)
[2022-10-20] MEDS: Lactated Ringers 1,000 ML 100 ML IVCONT (11:09)
[2022-10-20 11:43] VITALS: BP 118/64; PULSE 99; RESP 18; TEMP 36.6; O2SAT 98
== END 2022-10-20 12:42 | disposition home or self-care (01) ==
PROVIDERS: Nurse Practitioner; PCP Family Medicine; Visit Provider Internal Medicine Gastroenterology
PROC: 0DJD8ZZ Inspection of Lower Intestinal Tract, Via Natural or Artificial Opening Endoscopic (ICD-10-PCS; CPT 45378; principal; 2022-10-20 11:00)
DX: Z12.11 Encounter for screening for malignant neoplasm of colon (principal); Z86.010 Personal history of colon polyps; D12.8 Benign neoplasm of rectum; K64.0 First degree hemorrhoids; B19.20 Unspecified viral hepatitis C without hepatic coma; F11.20 Opioid dependence, uncomplicated; I10 Essential (primary) hypertension; E11.9 Type 2 diabetes mellitus without complications; F31.9 Bipolar disorder, unspecified; Z79.84 Long term (current) use of oral hypoglycemic drugs; Z79.899 Other long term (current) drug therapy; Z79.82 Long term (current) use of aspirin; Z90.49 Acquired absence of other specified parts of digestive tract; Z87.898 Personal history of other specified conditions; Z87.891 Personal history of nicotine dependence
CPT/HCPCS: 45385; 80307; 82947; 88305

== ENCOUNTER → 2022-11-02 08:35 | Outpatient (BNVA) | payer OTHER, SELFPAY | PROVIDERS: PCP Family Medicine; Visit Provider Nurse Practitioner | DX: D12.6 Benign neoplasm of colon, unspecified (principal); B19.10 Unspecified viral hepatitis B without hepatic coma | CPT/HCPCS: 99212 ==

== ENCOUNTER 2023-01-26 08:30 | Outpatient (REF) | payer OTHER, SELFPAY ==
--- NOTE | ~2023-01-26 | US_ITS ---
EXAMINATION: US RETROPERITONEAL LIMITED (RENAL ONLY) CLINICAL INFORMATION: Calculus of kidney. COMPARISON: Ultrasound abdomen complete 09/04/2022 and 03/10/2022. CT of the pelvis 03/01/2019. TECHNIQUE: Real-time imaging of the kidneys. FINDINGS: RIGHT KIDNEY: 11.0 x 4.2 x 5.2 cm (SAG x AP x TRV). The kidney is normal in size, contour, and echogenicity. Renal cortical thickness is normal. No calculi or focal parenchymal lesions. No hydronephrosis. LEFT KIDNEY: 11.2 x 5.5 x 5.2 cm (SAG x AP x TRV). The kidney is normal in size, contour, and echogenicity. Renal cortical thickness is normal. There is a 1.2 x 1.1 x 1 cm cyst in the lateral mid to lower pole. No imaging follow-up recommended. No renal calculi or hydronephrosis. US/US renal BI IMPRESSION: No stone seen.
== END 2023-01-26 08:31 | disposition home or self-care (01) ==
LOC: HO.US 08:30
PROVIDERS: PCP Family Medicine; Visit Provider Family Medicine
DX: N20.0 Calculus of kidney (principal); B18.2 Chronic viral hepatitis C
CPT/HCPCS: 76775

== ENCOUNTER 2023-04-18 08:34 | Day surgery (SDC) | payer OTHER, SELFPAY ==
--- NOTE | 2023-04-17 09:54 | HO.ANESPROP2 ---
Documented by User: Joslyn Varela NP 04/17/23 09:54 HPI - Anesthesia Eval Consult details Narrative: 62yo M for Colonoscopy Suboxone daily s/p colo 10/2022 [facility] Active Problems Active Problems: All Active Problems (Updated 11/02/22 @ 08:57 by ART Espinoza) Hepatitis B infection (Acute) Shoulder pain, right (Acute) BPH w urinary obs/LUTS (Acute) Nephrolithiasis (Acute) Hepatitis C infection (Acute) Hx of intravenous drug use, in remission (Acute) Opiate dependence, continuous (Acute) HTN (hypertension), benign (Acute) Diabetes (Acute) Bipolar disorder (Acute) Smoker (Acute) Urinary incontinence (Acute) Leg paresthesia (Acute) Genital herpes (Acute) Tubular adenoma of colon (Acute) Abnormal CT scan, gallbladder (Acute) Past Medical History Medical History Abnormal CT scan, gallbladder Anxiety Bipolar disorder Diabetes Hepatitis C Hypertension Substance abuse Family History Family history of problems with anesthesia: No Surgical History Surgical History H/O colonoscopy H/O prostatectomy History of cholecystectomy Hx of cystoscopy History of Problems with Anesthesia: No Social History Social History Alcohol intake: never Patient Tobacco Use Status: Former Tobacco user Tobacco use type: Cigarette Substance Use Type: Heroin Advance Directives: No Advance Directives Information Provided: Yes Meds Allergies Allergy/AdvReac Type Severity Reaction Status Date / Time No Known Allergies Allergy Verified 11/02/22 09:37 [No Known Allergies*] Home Medications Medication Instructions Recorded Confirmed Last Taken Type aspirin 81 mg tablet,delayed 81 mg PO DAILY 03/29/21 07/18/21 Unknown History release (Adult Low Dose Aspirin) atorvastatin 20 mg tablet 20 mg PO DAILY 03/29/21 07/18/21 Unknown History buprenorphine 8 mg-naloxone 2 mg 1 film sublingual .twice a day 03/29/21 07/18/21 Unknown History sublingual film (Suboxone) docusate sodium 100 mg capsule 200 mg PO BID 03/29/21 07/18/21 Unknown History (Colace) hydrochlorothiazide 25 mg tablet 25 mg PO DAILY 03/29/21 07/18/21 Unknown History lisinopril 10 mg tablet 10 mg PO DAILY 03/29/21 07/18/21 Unknown History metformin 500 mg tablet 500 mg PO DAILY 03/29/21 07/18/21 Unknown History naloxone 4 mg/actuation nasal 1 spray intranasal Q2M 03/29/21 07/18/21 Unknown History spray (Narcan) quetiapine 100 mg tablet (Seroquel) 100 mg PO BEDTIME 03/29/21 07/18/21 Unknown History alcohol swabs (Alcohol Prep Pads) 0 pad topical 11/29/21 Unknown History blood sugar diagnostic (FreeStyle #10 ea 11/29/21 Unknown History Lite Strips) cholecalciferol (vitamin D3) 50 50 mcg PO QAM 11/29/21 Unknown History mcg (2,000 unit) tablet gabapentin 100 mg capsule 100 mg PO TID 11/29/21 Unknown History lancets 33 gauge (TRUEplus Lancets) #100 ea 11/29/21 Unknown History triamcinolone acetonide 0.1 % 1 appl topical BID-TID 11/29/21 Unknown History topical cream blood-glucose meter (FreeStyle #1 ea 06/26/22 Unknown History [place] Lite kit) Exam Exam Date and Time: April 17, 2023 0954 Assessment and Plan Assessment Anesthesia Assessment: Chart Reviewed Final Anesthetic Review Family History of Problems with Anesthesia: No History of Problems with Anesthesia: No Documented by User: Bennett Neal MD 04/18/23 08:47 [facility] Past Medical History Medical History Abnormal CT scan, gallbladder Anxiety Bipolar disorder Diabetes Hepatitis C Hypertension Substance abuse Surgical History Surgical History H/O colonoscopy H/O prostatectomy History of cholecystectomy Hx of cystoscopy Social History Social History Alcohol intake: never Patient Tobacco Use Status: Former Tobacco user Tobacco use type: Cigarette Substance Use Type: Heroin Advance Directives: No Advance Directives Information Provided: Yes Meds Allergies Allergy/AdvReac Type Severity Reaction Status Date / Time No Known Allergies Allergy Verified 11/02/22 09:37 [No Known Allergies*] Home Medications Medication Instructions Recorded Confirmed Last Taken Type aspirin 81 mg tablet,delayed 81 mg PO DAILY 03/29/21 07/18/21 Unknown History release (Adult Low Dose Aspirin) atorvastatin 20 mg tablet 20 mg PO DAILY 03/29/21 07/18/21 Unknown History buprenorphine 8 mg-naloxone 2 mg 1 film sublingual .twice a day 03/29/21 07/18/21 Unknown History sublingual film (Suboxone) docusate sodium 100 mg capsule 200 mg PO BID 03/29/21 07/18/21 Unknown History (Colace) hydrochlorothiazide 25 mg tablet 25 mg PO DAILY 03/29/21 07/18/21 Unknown History lisinopril 10 mg tablet 10 mg PO DAILY 03/29/21 07/18/21 Unknown History metformin 500 mg tablet 500 mg PO DAILY 03/29/21 07/18/21 Unknown History naloxone 4 mg/actuation nasal 1 spray intranasal Q2M 03/29/21 07/18/21 Unknown History spray (Narcan) quetiapine 100 mg tablet (Seroquel) 100 mg PO BEDTIME 03/29/21 07/18/21 Unknown History alcohol swabs (Alcohol Prep Pads) 0 pad topical 11/29/21 Unknown History blood sugar diagnostic (FreeStyle #10 ea 11/29/21 Unknown History Lite Strips) cholecalciferol (vitamin D3) 50 50 mcg PO QAM 11/29/21 Unknown History mcg (2,000 unit) tablet gabapentin 100 mg capsule 100 mg PO TID 11/29/21 Unknown History lancets 33 gauge (TRUEplus Lancets) #100 ea 11/29/21 Unknown History triamcinolone acetonide 0.1 % 1 appl topical BID-TID 11/29/21 Unknown History topical cream blood-glucose meter (FreeStyle #1 ea 06/26/22 Unknown History [place] Lite kit) Exam Airway Mallampati Class: II TM Dist: >3cm Neck ROM: Full Assessment and Plan Final Anesthetic Review NPO: Yes ASA Class: III Final Preanesthetic Review: No Changes in Pt Med Stat, Meds/Allgs Chart Reviewed, Consent Obtained/Reviewed and Anes Risks/Benef Reviewed Patient Risk: Intermediate Procedure Risk: Low Anesthetic Plan Anesthetic Plan: MAC: Disposition: Standard PACU
[2023-04-18 08:58] VITALS: BP 112/64; PULSE 72; RESP 16; TEMP 36.3; O2SAT 97; BMI 22.3
[2023-04-18 09:00] LABS: Glucose, Whole Blood 146 mg/dL (60-115)
--- NOTE | 2023-04-18 09:05 | MHC.SHP ---
Pre-Procedural Eval Section A Date of Service: 04/18/23 Section B Chief Complaint: Benign neoplasm of colon, unspecified Relevant Family History (Specify if Yes): No Relevant Social History: None Present Medications: see Short Stay Collaborative assessment Medical History: Significant History (Abnormal CT scan, gallbladder Anxiety Bipolar disorder Diabetes Hepatitis C Hypertension Substance abuse) History of Previous Operations: Relevant previous surgery/procedure and date(s) (H/O colonoscopy H/O prostatectomy History of cholecystectomy Hx of cystoscopy) Allergies: Allergies Allergy/AdvReac Type Severity Reaction Status Date / Time No Known Allergies Allergy Verified 11/02/22 09:37 [No Known Allergies*] Review of Systems Sugical H&P ROS: Negative: Constitution, Cardiovascular, Respiratory, Neurological, Psychiatric, Hem-Onc, Allergic/Immunologic, Gastrointestinal, Genitourinary, Musculoskeletal, Integumentary, Endocrine and Eyes/Ears/Nose/Throat Exam Surgical H&P Exam: Normal: HEENT, Normal: Heart, Normal: Lungs, Normal: Extremities, Normal: Abdomen, Normal: Skin and Normal: Neurological Plan Diagnosis/Plan: Unchanged I have reviewed the history and physical and performed a pertinent physical examination on my patient. No changes have occurred unless specified. Time Spent With Patient Time: Total time managing care of this patient today ____ minutes.
--- NOTE | 2023-04-18 09:07 | P.OP_ITS ---
Operative Note Operative Note Date of Service: 04/18/23 Narrative: Operative Information Procedure Description: Colonoscopy Indication: hx of colon polyps Anesthesia: MAC COLONOSCOPY Instrument: Olympus variable stiffness pediatric scope 190L Colonoscopy Monitoring: Vital signs and clinical assessment, continuous EKG monitoring, Pulse oximetry, Carbon Dioxide monitoring and blood pressure monitoring were done throughout the procedure. Colon withdrawal time was 10 minutes. Procedure: The patient was placed in the left lateral decubitis position and pre-procedure medications were administered. After a digital rectal examination of the ano-rectum, the video colonoscope was inserted into the rectum and advanced through the colon to the cecum/TI. The colonoscope was slowly withdrawn in a retrograde panoramic fashion and the colon mucosa was carefully examined including a retroflexed view of the rectum. Findings and interventions are described below. Procedure Difficulty: easy Findings: Terminal Ileum-normal Cecum: 6-7 mm sessile polyp removed with cold forceps Ascending Colon: normal Transverse Colon -normal Descending Colon:normal Sigmoid Colon: 8-10 mm sessile polyp removed with cold snare Rectum: Retroflexion with small internal hemorrhoids, grade I Anorectum - normal Colon preparation: Stuart Bowel Preparation Scale Right colon; 1 Transverse colon: 2 Left colon; 3 (0 = Unprepared colon segment with mucosa not seen due to solid stool that ca nnot be cleared. 1 = Portion of mucosa of the colon segment seen, but other areas of the colon segment not well seen due to staining, residual stool and/or opaque liquid. 2 = Minor amount of residual staining, small fragments of stool and/or opaque liquid, but mucosa of colon segment seen well. 3 = Entire mucosa of colon segment seen well with no residual staining, small fragments of stool or opaque liquid) Impression and Post Procedure Diagnosis: polyps internal hemorrhoids Plan: High fiber diet leaflet Avoid straining at stool, epsom salts and sitz bath, anusol supps or cream Repeat Colonoscopy in 1-2 years due to polyps and fair right sided prep or earlier if clinically indicated Above findings were reviewed with the patient and relevant handouts were provided if indicated.
[2023-04-18 09:48] VITALS: BP 88/42; PULSE 60; RESP 16; TEMP 36.1; O2SAT 97
[2023-04-18 09:58] VITALS: BP 110/69; PULSE 69; RESP 16; O2SAT 98
[2023-04-18 10:03] VITALS: BP 128/86; PULSE 74; RESP 20; TEMP 36.3; O2SAT 97
== END 2023-04-18 10:40 | disposition home or self-care (01) ==
PROVIDERS: PCP Family Medicine; Visit Provider Internal Medicine Gastroenterology
PROC: 0DJD8ZZ Inspection of Lower Intestinal Tract, Via Natural or Artificial Opening Endoscopic (ICD-10-PCS; CPT 45378; principal; 2023-04-18 10:10)
DX: Z12.11 Encounter for screening for malignant neoplasm of colon (principal); Z86.010 Personal history of colon polyps; D12.0 Benign neoplasm of cecum; D12.5 Benign neoplasm of sigmoid colon; K64.0 First degree hemorrhoids; E11.9 Type 2 diabetes mellitus without complications; I10 Essential (primary) hypertension; B19.20 Unspecified viral hepatitis C without hepatic coma; F11.10 Opioid abuse, uncomplicated; Z90.49 Acquired absence of other specified parts of digestive tract; Z79.82 Long term (current) use of aspirin; Z79.84 Long term (current) use of oral hypoglycemic drugs; Z79.899 Other long term (current) drug therapy; F17.210 Nicotine dependence, cigarettes, uncomplicated
CPT/HCPCS: 45385; 45380; 82947; 88305

== ENCOUNTER → 2023-04-18 08:34 | Outpatient (BNV) | payer OTHER, SELFPAY | PROVIDERS: PCP Family Medicine; Visit Provider Internal Medicine Gastroenterology | DX: Z86.010 Personal history of colon polyps (principal); D12.0 Benign neoplasm of cecum; D12.5 Benign neoplasm of sigmoid colon; K64.8 Other hemorrhoids | CPT/HCPCS: 45380; 45385 ==

== ENCOUNTER 2023-05-14 10:13 | Outpatient (REF) | payer OTHER, SELFPAY ==
[2023-05-14 11:26] LABS: MANUAL DIFF FLAG NO
[2023-05-14 11:56] LABS: Basophils Absolute Auto 0.1 X10*3/uL (0.0-0.2); Basophils Percent Auto 0.5 % (0-2); Eosinophils Absolute Auto 0.2 X10*3/uL (0.0-0.4); Eosinophils Percent Auto 1.8 % (0-4); Hematocrit 38.9 % (42.0-52.0); Hemoglobin 12.7 g/dl (14.0-18.0); Imm Gran Abs Auto 0.05 X10*3/uL (0.00-0.03); Imm Gran Pct Auto 0.5 % (0.0-0.4); Lymphocytes Absolute Auto 2.8 X10*3/uL (1.2-4.9); Lymphocytes Percent Auto 27.8 % (20-40); Mean Corpuscular HGB Conc 32.6 g/dl (31.0-36.0); Mean Corpuscular Hemoglobin 28.2 pg (27.0-33.0); Mean Corpuscular Volume 86.3 fL (80.0-98.0); Mean Platelet Volume 10.2 fL (9.4-12.4); Monocytes Absolute Auto 0.7 X10*3/uL (0.1-1.2); Monocytes Percent Auto 6.5 % (2-11); Neutrophils Absolute Auto 6.3 x10*3/uL (2.0-8.3); Neutrophils Percent Auto 62.9 % (45-73); Platelet Count 275 X10*3/uL (160-400); Red Blood Count 4.51 X10*6/uL (4.60-5.80); White Blood Count 10.1 X10*3/uL (4.8-10.8)
[2023-05-14 11:58] LABS: Estimated Average Glucose 117 mg/dL; Hemoglobin A1c % 5.7 % (<6.0)
[2023-05-14 12:54] LABS: HIV AB/AG Nonreactive (Nonreactive); HIV Num 1 0.07 S/CO (0.00-0.99)
[2023-05-14 12:56] LABS: Alanine Aminotransferase 21 U/L (0-40); Albumin Level 4.5 g/dL (3.5-5.0); Alkaline Phosphatase 79 U/L (39-117); Anion Gap 14 (12-20); Aspartate Amino Transferase 25 U/L (5-37); Bilirubin Direct 0.1 mg/dL (0.0-0.5); Bilirubin Total 0.3 mg/dL (0.0-1.0); Blood Urea Nitrogen 15 mg/dL (9-16); Calcium 9.6 mg/dL (8.4-10.2); Carbon Dioxide 27 mmol/L (22-29); Chloride 101 mmol/L (96-108); Cholesterol 147 mg/dL (<200); Estimated Glomerular Filt Rate > 60; Glucose Random 109 mg/dL (60-115); HDL Cholesterol 37 mg/dL (>40); LDL Cholesterol Calculated 76 mg/dL (<100); Sodium 138 mmol/L (135-145); Total Protein 7.7 g/dL (6.5-8.0); Triglycerides 174 mg/dL (<150)
[2023-05-14 12:57] LABS: Syphilis Screen Nonreactive (Nonreactive)
[2023-05-14 13:02] LABS: Free T4 (Free Thyroxine) 0.81 ng/dL (0.71-1.85); Thyroid Stimulating Hormone 1.06 uIU/mL (0.32-4.0)
[2023-05-14 14:18] LABS: Creatinine Urine 147.26 mg/dL; Microalbum/Creatinine Ratio Ur 4.7 ug/mg cr (<30)
[2023-05-14 15:37] LABS: CT PCR NOT DETECTED (Not Detect.); NG PCR NOT DETECTED (Not Detect.)
[2023-05-16 19:48] LABS: HCV Log PCR <1.18 NOT DETECTED Log IU/mL (NOT DETECTED); HepC Viral Load <15 NOT DETECTED IU/mL (NOT DETECTED)
== END 2023-05-14 10:14 | disposition home or self-care (01) ==
LOC: HO.HHCL 10:13
PROVIDERS: Visit Provider Family Medicine
DX: Z11.4 Encounter for screening for human immunodeficiency virus [HIV] (principal); E11.9 Type 2 diabetes mellitus without complications; Z20.2 Contact with and (suspected) exposure to infections with a predominantly sexual mode of transmission; M19.90 Unspecified osteoarthritis, unspecified site
CPT/HCPCS: 0353U; 80048; 80061; 80076; 82043; 82306; 82570; 83036; 84439; 84443; 85025; 86780; 87389; 87522

== ENCOUNTER 2023-06-30 12:10 | Emergency (ER) | payer OTHER, SELFPAY ==
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
[2023-06-30 12:26] VITALS: BP 146/90; BP 149/67; PULSE 100; PULSE 101; RESP 18; TEMP 36.9; O2SAT 100; O2SAT 96; BMI 23.7
[2023-06-30 12:29] LABS: Glucose, Whole Blood 183 mg/dL (60-115)
[2023-06-30] MEDS: 0.9 % Sodium Chloride 1,000 ML 999 ML IVCONT (12:42)
[2023-06-30 12:44] LABS: MANUAL DIFF FLAG NO
[2023-06-30 12:45] LABS: Basophils Absolute Auto 0.1 X10*3/uL (0.0-0.2); Basophils Percent Auto 0.4 % (0-2); Eosinophils Absolute Auto 0.1 X10*3/uL (0.0-0.4); Eosinophils Percent Auto 1.2 % (0-4); Hematocrit 40.2 % (42.0-52.0); Hemoglobin 13.1 g/dl (14.0-18.0); Imm Gran Abs Auto 0.04 X10*3/uL (0.00-0.03); Imm Gran Pct Auto 0.3 % (0.0-0.4); Lymphocytes Absolute Auto 2.6 X10*3/uL (1.2-4.9); Lymphocytes Percent Auto 21.7 % (20-40); Mean Corpuscular HGB Conc 32.6 g/dl (31.0-36.0); Mean Corpuscular Hemoglobin 28.1 pg (27.0-33.0); Mean Corpuscular Volume 86.1 fL (80.0-98.0); Mean Platelet Volume 9.5 fL (9.4-12.4); Monocytes Absolute Auto 0.6 X10*3/uL (0.1-1.2); Monocytes Percent Auto 4.6 % (2-11); Neutrophils Absolute Auto 8.7 x10*3/uL (2.0-8.3); Neutrophils Percent Auto 71.8 % (45-73); Platelet Count 258 X10*3/uL (160-400); Red Blood Count 4.67 X10*6/uL (4.60-5.80); Red Cell Distribution Width 13.2 % (11.0-16.0); White Blood Count 12.1 X10*3/uL (4.8-10.8)
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
[2023-06-30 12:55] LABS: COVID-19 Test Negative (Negative); IDNOW Serial# 08D9AD1C; Prothrombin Time 11.8 SEC (11.1-13.3)
[2023-06-30 12:58] LABS: Ethanol < 10 mg/dL
[2023-06-30 13:00] LABS: Alanine Aminotransferase 24 U/L (0-40); Albumin Level 4.7 g/dL (3.5-5.0); Alkaline Phosphatase 70 U/L (39-117); Anion Gap 11 (12-20); Aspartate Amino Transferase 24 U/L (5-37); Bilirubin Direct 0.2 mg/dL (0.0-0.5); Bilirubin Total 0.6 mg/dL (0.0-1.0); Blood Urea Nitrogen 16 mg/dL (9-16); Calcium 9.5 mg/dL (8.4-10.2); Carbon Dioxide 30 mmol/L (22-29); Chloride 103 mmol/L (96-108); Creatinine Clr Calc Pharmacy 79.3; Estimated Glomerular Filt Rate > 60; Glucose Random 176 mg/dL (60-115); Lipase 23 U/L (8-78); Magnesium 1.9 mg/dL (1.6-2.6); Potassium 3.2 mmol/L (3.3-5.1); Sodium 141 mmol/L (135-145); Total Protein 7.9 g/dL (6.5-8.0)
[2023-06-30] MEDS: iohexoL 350 MG/ML 100 ML INFUS..BTL 85 ML IV (13:32)
[2023-06-30 14:17] VITALS: BP 132/76; PULSE 80; RESP 16; O2SAT 96
[2023-06-30 14:27] LABS: Appearance Urine Clear; Color Urine Yellow; Glucose Urine UA Negative (Negative); Leukocyte Esterase Urine Negative (Negative); Nitrite Urine Negative (Negative); PH 7.5 (5.0-9.0); Specific Gravity - Urine >= 1.030 (1.005-1.025); Urine Blood Negative (Negative); Urine Ketones Negative (Negative); Urine Protein Negative (Neg-Trace)
[2023-06-30 14:35] LABS: Amphetamine Screen Urine Not Detected (Not Detect); Barbiturates, Urine Not Detected (Not Detect); Benzodiazepines Screen Urine POSITIVE (Not Detect); Cannabinoid Screen Urine POSITIVE (Not Detect); Cocaine Screen Urine Not Detected (Not Detect); Fentanyl, urine POSITIVE (Not Detect); Opiate Screen Urine Not Detected (Not Detect); Phencyclidine Screen Urine Not Detected (Not Detect)
--- NOTE | 2023-06-30 15:16 | PC.NURSE ---
x-rays have been taken, hand lacs have been stitched. awaiting x-ray reports. pt on stretcher, visitor at bedside. call cornejo within reach. plan of care ongoing.
[2023-06-30] MEDS: Potassium Chloride Packet 20 MEQ PACKET 40 MEQ PO (15:28)
[2023-06-30 16:30] VITALS: BP 137/65; PULSE 85; RESP 16; TEMP 37.2; O2SAT 96
--- NOTE | 2023-06-30 16:30 | PC.NURSE ---
pt has low grade fever of 99.0 oral while taking last set of vitals before discharge. advised to take tylenol when home.
== END 2023-06-30 16:58 | disposition home or self-care (01) ==
PROVIDERS: Emergency Provider Emergency Medicine; PCP Family Medicine
DX: S61.411A Laceration without foreign body of right hand, initial encounter (principal); S61.217A Laceration without foreign body of left little finger without damage to nail, initial encounter; S60.141A Contusion of right ring finger with damage to nail, initial encounter; S00.03XA Contusion of scalp, initial encounter; V48.0XXA Car driver injured in noncollision transport accident in nontraffic accident, initial encounter; E87.6 Hypokalemia; Y93.89 Activity, other specified; Y92.410 Unspecified street and highway as the place of occurrence of the external cause; Y99.9 Unspecified external cause status; E11.9 Type 2 diabetes mellitus without complications; I10 Essential (primary) hypertension; Z11.52 Encounter for screening for COVID-19; Z79.84 Long term (current) use of oral hypoglycemic drugs; Z79.899 Other long term (current) drug therapy
CPT/HCPCS: 12001; 36415; 70450; 71260; 72125; 73130; 74177; 80048; 80076; 80307; 81003; 82947; 83690; 83735; 85025; 85610; 87635; 96360; 99284; Q9967

== ENCOUNTER 2023-12-21 12:44 | Outpatient (REF) | payer OTHER, SELFPAY ==
--- NOTE | ~2023-12-21 | MR_ITS ---
EXAMINATION: MR BRAIN WITHOUT CONTRAST CLINICAL INFORMATION: 63-year-old with self-reported sensation of being off balance and drifting. COMPARISON: None available. TECHNIQUE: MRI of the brain was obtained using routine sequences without contrast. FINDINGS: BRAIN VOLUME: Mild generalized diffuse cerebellar parenchymal volume loss is noted, relative to the supratentorial compartment, of indeterminate significance. STRUCTURAL: No malformations. BRAIN AND MENINGES: DWI sequence demonstrates no restricted diffusion to suggest acute or subacute cerebral ischemia. Scattered small patchy and punctate foci of FLAIR/T2 signal hyperintensity are noted in the subcortical white matter of the frontal and parietal lobes bilaterally, and within the deeper periventricular white matter of the parieto-occipital regions, which are nonspecific findings but could reflect chronic ischemic microangiopathy. There is tortuosity of a dominant right vertebral artery, which indents the ventrolateral aspect of the medulla, deforming the pontomedullary junction, likely an incidental finding. Gradient refocused imaging demonstrates no abnormal susceptibility-weighted signal loss to suggest hemorrhage, hemosiderin staining or abnormal mineralization. No extra-axial fluid collections, space-occupying process or mass effect are identified. VENTRICLES AND SUBARACHNOID SPACES: The ventricular system and subarachnoid spaces are within normal range; there is no hydrocephalus. ORBITAL STRUCTURES: The visualized orbital structures are grossly unremarkable within the limitations of the study. VASCULAR: Signal voids are noted in the visualized major intracranial vessels. The left vertebral artery is very small and appears to be hypoplastic with a large, dominant right vertebral artery. OSSEOUS STRUCTURES, SINUSES/MASTOIDS, EXTRACRANIAL SOFT TISSUES: Bone marrow signal intensity appears grossly within normal limits. Probable very small retention cysts in the sphenoid sinus and left maxillary sinus with minor mucosal thickening in the ethmoid complex. MR/MR head/brain wo con IMPRESSION: 1. Probable chronic ischemic microangiopathy in the white matter of both cerebral hemispheres, with no evidence for acute or subacute cerebral ischemia, hemorrhage, extra-axial fluid collection, space-occupying process, mass effect or hydrocephalus. 2. Mild generalized diffuse, mildly disproportionate cerebellar parenchymal volume loss of indeterminate significance.
== END 2023-12-21 12:45 | disposition home or self-care (01) ==
LOC: HO.MRI 12:44
PROVIDERS: PCP Family Medicine; Visit Provider Family Medicine
DX: R26.9 Unspecified abnormalities of gait and mobility (principal)
CPT/HCPCS: 70551

== ENCOUNTER 2024-09-26 11:49 | Outpatient (REF) | payer OTHER, SELFPAY ==
--- OUTSIDE RECORDS SUMMARY | 2024-09-26 12:30 | XMS_ITS | Encounter Summary ---
Author Organization [facility] Address [address] [facility] [address]t [place] [address] Care Team Providers Care Special Education Assistant Name Role Phone Linh Peralta DO Primary Care Provider [phone] Reason for Visit * Reason Comments Recovery Supports Encounter Details Date Type Department Care Team ([facility] st Contact Info) Description 09/02/2024 Patient Outreach [facility] [address] [place] [address] Jono Strickland [address] [place] [address] Recovery Supports Social History Tobacco Use Types Packs/Day Years Used Date Smoking Tobacco: Every Day Cigarettes Last attempted to quit: 08/13/2022 Passive Smoke Exposure: Current Smokeless Tobacco: Never Comments:Attempting to quit, has not smoked for 15 days Alcohol Use Standard Drinks/Week Comments Never 0 (1 standard drink = 0.6 oz pur e alcohol) Alcohol Answer Date Recorded Frequency of Alcohol Consumption Not on file 05/08/2023 Average Number of Drinks Not on file 023 Frequency of Binge Drinking Not on file 04/14 Score 0 05/08/2023 Depression Answer Date Recorded Patient Health Questionnaire-9 Score 14 11/13/2023 Patient Health Questionnaire-9 Score 14 11/13/2023 Last PHQ-9: Questionnaire Data Not on file 0 11/13/2023 Housing Stability Answer Date Recorded What is your housing situation today? I have joann alegria 05/29/[address] you li ve. Do you have problems with any of the following? None of the above 05/29/2023 Food Insecurity Answer Date Recorded Within the past 12 months, y ou worried that your food would run out before you got money to buy more: Never True 05/29/2023 Within the past 12 months,th e food you bought just didn't last and you didn't have enough money to get more: Never True Transportation Answer Date Recorded In the past 12 months, has l ack of transportation kept you from medical appts, meetings, work or from getting things needed for daily living? No 05/29/2023 Utilities Answer Date Recorded In the past 12 months, has t he electric, gas, oil or water company threatened to shut off services in your home? No 05/29/2023 Depression Answer Date Recorded Patient Health Questionnaire-2 Score 2 11/13/2023 Sex and Gender Information Value Date Recorded Sex Assigned at Male 06/12/2022 10:20 AM EDT Legal Sex Male 10:20 AM EDT Gender Identity Male 06/12/2022 10:20 AM EDT Sexual Orientation Straight 06/12/2022 10 :20 AM EDT documented as of this encounter Progress Notes * Jono Strickland - 09/02/2024 2:24 PM EST I met with Bernardo today. Setting: in person at [facility] Recovery Wellness Goals worked on: Social Stability Action taken/next steps: Offered person centered recovery support, Helped obtain ID, and Provided transportation assistance (bus pass, uber, etc.) Additional comments: met with Bernardo at the [facility], Pt submitted all his DR documents for he get backhis license. Jono Strickland documented in this encounter Plan of Treatment Upcoming Encounters Date Type Department Care Team (Late st Contact Info) Description 10/15/2024 9:00 AM EST Office Visit [facility] [address] [place] [address] Boo Nunez MD [address] [place] [address] documented as of this encounter Visit Diagnoses Not on filedocumented in this encounter Additional Health Concerns Assessment Noted Time PHQ-9 Depression Total Score: 14 024 12:37 PM EDT documented as of this encounter Care Teams Special Education Assistant Relationship Specialty Start Date End Date Linh Peralta DO [address] [place] [address] PCP - General Family Medicine 08/13/18 documented as of this encounter
--- OUTSIDE RECORDS SUMMARY | 2024-09-26 12:30 | XMS_ITS | Encounter Summary ---
Author Organization [employer] Address [address] [place] [address] [address] [place] [address] Care Team Providers Care Luncheonette Manager Name Role Phone Linh Peralta DO Primary Care Provider + [phone] Reason for Visit * Reason Comments Recovery Supports Encounter Details Date Type Department Care Team ([facility] st Contact Info) Description 08/29/2024 Patient Outreach [facility] [address] [place] [address] Joesph Bajwa [address] [place] [address] Recovery Supports Social History Tobacco Use Types [...] as of this encounter Progress Notes * Joesph Bajwa - 08/29/2024 11:59 PM EST I met with Bernardo today. 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 Joesph Bajwa documented in this encounter Plan of Treatment Upcoming Encounters Date Type Department Care Team (Late st Contact Info) Description 10/15/2024 9:00 AM EST Office Visit [facility] [address] [place], [place] [phone] Boo Nunez MD [address] [place] [address] documented as of this encounter Visit Diagnoses Not on filedocumented in this encounter Additional Health Concerns Assessment Noted Time PHQ-9 Depression Total Score: 14 04/02/2 024 12:37 PM EDT documented as of this encounter Care Teams Luncheonette Manager Relationship Specialty Start Date End Date Linh Peralta DO [address] [place] [address] PCP - General Family Medicine 08/13/18 documented as of this encounter
--- OUTSIDE RECORDS SUMMARY | 2024-09-26 12:30 | XMS_ITS | Encounter Summary ---
Author Organization [employer] Address [address] [facility] 7t [place] [address] Care Team Providers Care Grid Trimmer Name Role Phone Linh Peralta DO Primary Care Provider [phone] Encounter Details Date Type Department Care Team (Latest Contact Info) Description 09/03/2024 Travel Social History Tobacco Use Types Packs/Day Years [...] AM EDT documented as of this encounter Plan of Treatment Upcoming Encounters Date Type Department Care Team (Late st Contact Info) Description 10/15/2024 9:00 AM EST Office Visit [facility] [address] [place] [address] Boo Nunez MD [address] [place] [address] documented as of this encounter Visit Diagnoses Not on filedocumented in this encounter Additional Health Concerns Assessment Noted Time PHQ-9 Depression Total Score: 14 024 12:37 PM EDT documented as of this encounter Care Teams Grid Trimmer Relationship Specialty Start Date End Date Linh Peralta DO [address] [place] [address] [id number] PCP - General Family Medicine 08/13/18 documented as of this encounter
--- OUTSIDE RECORDS SUMMARY | 2024-09-26 12:30 | XMS_ITS | Encounter Summary ---
Author Organization [employer] Address [address] [place] [address] 7[address] [place] [address] Care Team Providers Care Bicycle Subassembler Name Role Phone Linh Peralta DO Primary Care Provider + [phone] Reason for Visit * Reason Comments Recovery Supports Encounter Details Date Type Department Care Team ([facility] st Contact Info) Description 09/11/2024 Patient Outreach [facility] [address] [place], [place] [phone] Joesph Bajwa [address] [place] [address] Recovery Supports Social History Tobacco Use Types [...] Recorded Patient Health Questionnaire-2 Score 2 11/13/2023 Internet Access Answer Date Recorded Internet Access Q1 Yes 09/15/2024 Internet Access Q2 Not on file 09/15/2024 Sex and Gender Information Value Date Recorded Sex Assigned at Male 06/12/2022 10:20 AM EDT Legal Sex Male 10:20 AM EDT Gender Identity Male 06/12/2022 10:20 AM EDT Sexual Orientation Straight 06/12/2022 10 :20 AM EDT documented as of this encounter Progress Notes * Joesph Bajwa - 09/11/2024 11:59 PM EST I met with Bernardo keita. Setting: in person at [facility] Recovery Wellness Goals worked on: Physical Health/Mental Health and Social Stability Action taken/next steps: Attended recovery support group Additional comments: Participant attended the tobacco awareness group where individuals shared their experiences and relationships with tobacco. The session focused on exploring these relationships, sharing information and resources. Joesph Bajwa documented in this encounter Plan of Treatment Upcoming Encounters Date Type Department Care Team (Late st Contact Info) Description 10/15/2024 9:00 AM EST Office Visit [facility] [address] [place] [address] Boo Nunez MD [address] [place] [address] documented as of this encounter Visit Diagnoses Not on filedocumented in this encounter Additional Health Concerns Assessment Noted Time PHQ-9 Depression Total Score: 14 024 12:37 PM EDT documented as of this encounter Care Teams Bicycle Subassembler Relationship Specialty Start Date End Date Linh Peralta DO [address] [place] [id number] PCP - General Family Medicine 08/13/18 documented as of this encounter
--- OUTSIDE RECORDS SUMMARY | 2024-09-26 12:30 | XMS_ITS | Encounter Summary ---
Author Organization [employer] Address [address] [place] [address] [address] [place] [address] Care Team Providers Care Manager Facility Name Role Phone Linh Peralta DO Primary Care Provider + [phone] Reason for Visit * Reason Comments Recovery Supports Encounter Details Date Type Department Care Team ([facility] st Contact Info) Description 09/08/2024 Patient Outreach [facility] [address] [place], [place] [phone] Joesph Bajwa [address] [place] [address] Recovery Supports Social History Tobacco Use Types [...] encounter Progress Notes * Joesph Bajwa - 09/08/2024 3:56 PM EST I met with Bernardo keita. Setting: in person at [facility] Recovery Wellness Goals worked on: Physical Health/Mental Health, Social Stability, and Spiritual Wellness Action taken/next steps: Attended recovery support group Additional comments: Attended 12-step support group focused on introducing Steps 1, 2, and 3, and discussing their application in our recovery journey. Joesph Bajwa documented in this encounter Plan of Treatment Upcoming Encounters Date Type Department Care Team (Late st Contact Info) Description 10/15/2024 9:00 AM EST Office Visit [facility] [address] [place] [address] Boo Nunez MD [address] [place] [address] documented as of this encounter Visit Diagnoses Not on filedocumented in this encounter Additional Health Concerns Assessment Noted Time PHQ-9 Depression Total Score: 14 024 12:37 PM EDT documented as of this encounter Care Teams Manager Facility Relationship Specialty Start Date End Date Linh Peralta DO [address] [place] [address] PCP - General Family Medicine 08/13/18 documented as of this encounter
--- OUTSIDE RECORDS SUMMARY | 2024-09-26 12:30 | XMS_ITS | Encounter Summary ---
Author Organization [employer] [facility] Address [address] [place] [address] [address] [place] [address] Care Team Providers Care Graduate Research Assistant Name Role Phone Linh Peralta DO Primary Care Provider + [phone] Reason for Visit * Reason Comments Med Refill Encounter Details Date Type Department Care Team (Late Contact Info) Description 12/14/2022 Refill [facility] [address] [place], [place] [phone] Linh Peralta DO [address] [place], [place] [phone] Social History Tobacco Use Types Packs/Day Years Used Date Smoking Tobacco: Former Cigarettes Q uit: 08/13/2022 Passive Smoke Exposure: Current Smokeless Tobacco: Never Alcohol Use Standard Drinks/Week Comments Never 0 (1 standard drink = 0.6 oz pur e alcohol) PHQ-2 Answer Date Recorded Patient Health Questionnaire-2 Score 0 09/08/2022 Sex and Gender Information Value Date Recorded Sex Assigned at Male 06/12/2022 10:20 AM EDT Legal Sex Male 10:20 AM EDT Gender Identity Male 06/12/2022 10:20 AM EDT Sexual Orientation Straight 06/12/2022 10 :20 AM EDT COVID-19 Exposure Response Date Recorded In the last 10 days, have yo u been in contact with someone who was confirmed or suspected to have Coronavirus/COVID-19? No / Unsure 12/13/2022 9:06 AM EDT documented as of this encounter Plan of Treatment Upcoming Encounters Date Type Department Care Team (Late Contact Info) Description 10/15/2024 9:00 AM EST Office Visit [facility] [address] [place] [address] Boo Nunez MD [address] [place] [address] documented as of this encounter Visit Diagnoses Not on filedocumented in this encounter Additional Health Concerns Assessment Noted Time PHQ-9 Depression Total Score: 0 09/08/19 23 10:39 AM EST documented as of this encounter Care Teams Graduate Research Assistant Relationship Specialty Start Date End Date Linh Peralta DO [address] [place] [address] PCP - General Family Medicine 08/13/18 documented as of this encounter
--- OUTSIDE RECORDS SUMMARY | 2024-09-26 12:30 | XMS_ITS | Encounter Summary ---
Author Organization [employer] [facility] Address [address] [place] [address] [address] [place] [address] Care Team Providers Care Railway Track Worker Name Role Phone Linh Peralta DO Primary Care Provider [phone] Encounter Details Date Type Department Care Team (Latest Contact Info) Description 11/21/2021 Abstract [facility] CONVERSIONS Dental, Provider, DDS Social History Tobacco Use Types Packs/Day Years Used Date Smoking Tobacco: Never Assessed Sex and Gender Information Value Date Recorded Sex Assigned at Male 06/12/2022 10:20 AM EDT Legal Sex Male 10:20 AM EDT Gender Identity Male 06/12/2022 10:20 AM EDT Sexual Orientation Straight 06/12/2022 10 :20 AM EDT documented as of this encounter Plan of Treatment Upcoming Encounters Date Type Department Care Team (Late st Contact Info) Description 10/15/2024 9:00 AM EST Office Visit [facility] [address] [place] [address] Boo Nunez MD [address] [place] [address] documented as of this encounter Visit Diagnoses Not on filedocumented in this encounter Care Teams Railway Track Worker Relationship Specialty Start Date End Date Linh Peralta DO [address] [place], [place] [phone] PCP - General Family Medicine 08/13/18 documented as of this encounter
--- OUTSIDE RECORDS SUMMARY | 2024-09-26 12:30 | XMS_ITS | Encounter Summary ---
Author Organization [employer] Address [address] [place] [address] 7[address] [place] [address] Care Team Providers Care Glassworker Name Role Phone Linh Peralta DO Primary Care Provider [phone] Encounter Details Date Type Department Care Team (Late Contact Info) Description 08/22/2022 Abstract [facility] [address] [place] [address] Navi Peter DDS [address] [place] [address] Social History Tobacco Use Types Packs/Day Years Used Date Smoking Tobacco: Former Cigarettes Q uit: 08/13/2022 Passive Smoke Exposure: Current Smokeless Tobacco: Never Alcohol Use Standard Drinks/Week Comments Never 0 (1 standard drink = 0.6 oz pur e alcohol) PHQ-2 Answer Date Recorded Patient Health Questionnaire-2 Score 5 08/16/2022 Sex and Gender Information Value Date Recorded [...] suspected to have Coronavirus/COVID-19? No / Unsure 08/23/2022 8:54 AM EST documented as of this encounter Plan of Treatment Upcoming Encounters Date Type Department Care Team (Late Contact Info) Description 10/15/2024 9:00 AM EST Office Visit [facility] MED[facility] [address] [place] [address] Boo Nunez MD 230 [place] [address] documented as of this encounter Visit Diagnoses Not on filedocumented in this encounter Additional Health Concerns Assessment Noted Time PHQ-9 Depression Total Score: 12 08/16/ 023 9:17 AM EST documented as of this encounter Care Teams Glassworker Relationship Specialty Start Date End Date Linh Peralta DO 230 [place] [address] PCP - General Family Medicine 08/13/18 documented as of this encounter
--- OUTSIDE RECORDS SUMMARY | 2024-09-26 12:30 | XMS_ITS | Encounter Summary ---
Author Organization [employer] Address [address] [place] [address] 7[address] [place] [address] Care Team Providers Care Pathology Secretary/Transcriptionist Name Role Phone Linh Peralta DO Primary Care Provider + [phone] Reason for Visit * Reason Onset Date Comments Med Refill 09/10/2024 Encounter Details Date Type Department Care Team (Late st Contact Info) Description 09/10/2024 Refill [facility] MED[facility]INE [address] [place] [address] Lore Khan RN Opioid dependence, uncomplicated (CMS/HCC) Social History Tobacco Use Types Packs/Day Years [...] Description 10/15/2024 9:00 AM EST Office Visit [facility] MED[facility] [address] [place] [address] Boo Nunez MD 230 [place] [address] documented as of this encounter Visit Diagnoses Diagnosis Opioid dependence, uncomplicated (CMS/HCC) documented in this encounter Additional Health Concerns Assessment Noted Time PHQ-9 Depression Total Score: 14 024 12:37 PM EDT documented as of this encounter Care Teams Pathology Secretary/Transcriptionist Relationship Specialty Start Date End Date Linh Peralta DO [address] [place] [id number] PCP - General Family Medicine 08/13/18 documented as of this encounter
--- OUTSIDE RECORDS SUMMARY | 2024-09-26 12:30 | XMS_ITS | Encounter Summary ---
Author Organization [employer] Address [address] [facility] 7t [place] [address] Care Team Providers Care Bricklayer Tender Name Role Phone Linh Peralta DO Primary Care Provider + [phone] Encounter Details Date Type Department Care Team ([facility] st Contact Info) Description 10/16/2023 Telephone [facility] 230 [place] [address] Linh Peralta DO 230 [place], [place] [phone] Social History Tobacco Use Types Packs/Day Years [...] Answer Date Recorded Patient Health Questionnaire-9 Score 15 05/22/2023 Housing Stability Answer Date Recorded What is [...] Answer Date Recorded Patient Health Questionnaire-2 Score 4 05/22/2023 Sex and Gender Information Value Date Recorded Sex Assigned at Male 06/12/2022 10:20 AM EDT Legal Sex Male 10:20 AM EDT Gender Identity Male 06/12/2022 10:20 AM EDT Sexual Orientation Straight 06/12/2022 10 :20 AM EDT documented as of this encounter Plan of Treatment Upcoming Encounters Date Type Department Care Team (Late st Contact Info) Description 10/15/2024 9:00 AM EST Office Visit [facility] MED[facility] [address] [place] [address] Boo Nunez MD 230 [place] [address] documented as of this encounter Visit Diagnoses Not on filedocumented in this encounter Additional Health Concerns Assessment Noted Time PHQ-9 Depression Total Score: 15 023 2:08 PM EDT documented as of this encounter Care Teams Bricklayer Tender Relationship Specialty Start Date End Date Linh Peralta DO [address] [place] [address] PCP - General Family Medicine 08/13/18 documented as of this encounter
--- OUTSIDE RECORDS SUMMARY | 2024-09-26 12:30 | XMS_ITS | Encounter Summary ---
Author Organization [employer] Address [address] [place] [address] 7t [place] [address] Care Team Providers Care Cell Operation Supervisor Name Role Phone Linh Peralta DO Primary Care Provider + [phone] Reason for Visit * Reason Comments Med Refill Encounter Details Date Type Department Care Team ([facility] st Contact Info) Description 09/24/2024 Refill [facility] MED[facility] [address] [place] [address] Linh Peralta DO 230 [place] [address] Vitamin D deficiency Social History Tobacco Use Types Packs/Day Years [...] Description 10/15/2024 9:00 AM EST Office Visit [facility] [address] [place] [address] Boo Nunez MD 230 [place] [address] documented as of this encounter Visit Diagnoses Diagnosis Vitamin D deficiency documented in this encounter Additional Health Concerns Assessment Noted Time PHQ-9 Depression Total Score: 14 024 12:37 PM EDT documented as of this encounter Care Teams Cell Operation Supervisor Relationship Specialty Start Date End Date Linh Peralta DO 230 [place] [address] PCP - General Family Medicine 08/13/18 documented as of this encounter
--- OUTSIDE RECORDS SUMMARY | 2024-09-26 12:30 | XMS_ITS | Encounter Summary ---
Author Organization [employer] Address 75 [facility] 7t [place] [address] Care Team Providers Care Train Director Name Role Phone Linh Peralta DO Primary Care Provider + [phone] Reason for Visit * Reason Comments Med Refill Encounter Details Date Type Department Care Team ([facility] st Contact Info) Description 05/22/2023 Refill [facility] 230 [place] [address] Boo Nunez MD 230 [place] [address] Social History Tobacco Use Types Packs/Day Years [...] housing situation today? I have joann alegria 05/22/[address] you li ve. Do you have problems with any of the following? None of the above 05/22/2023 Food Insecurity Answer Date Recorded Within the past 12 months, y ou worried that your food would run out before you got money to buy more: Never True 05/22/2023 Within the past 12 months,th e food you bought just didn't last and you didn't have enough money to get more: Never True 05/2023 Transportation Answer Date Recorded In the past 12 months, has l ack of transportation kept you from medical appts, meetings, work or from getting things needed for daily living? No 05/22/2023 Utilities Answer Date Recorded In the past 12 months, has t he electric, gas, oil or water company threatened to shut off services in your home? No 05/22/2023 Depression Answer Date Recorded Patient Health Questionnaire-2 [...] Description 10/15/2024 9:00 AM EST Office Visit [facility] [address] [place] [address] Boo Nunez MD 230 [place] [address] documented as of this encounter Visit Diagnoses Not on filedocumented in this encounter Additional Health Concerns Assessment Noted Time PHQ-9 Depression Total Score: 15 023 2:08 PM EDT documented as of this encounter Care Teams Train Director Relationship Specialty Start Date End Date Linh Peralta DO [address] [place] [address] PCP - General Family Medicine 08/13/18 documented as of this encounter
--- OUTSIDE RECORDS SUMMARY | 2024-09-26 12:30 | XMS_ITS | Encounter Summary ---
Author Organization [employer] Address [address] [facility] 7t [place] [address] Care Team Providers Care Mixed Livestock Farmer Name Role Phone Linh Peralta DO Primary Care Provider + [phone] Encounter Details Date Type Department Care Team (Late st Contact Info) Description 11/22/[address] [facility] MEDICINE [address] [place] [address] Provider, MD Eron Social History Tobacco Use Types Packs/Day Years [...] Description 10/15/2024 9:00 AM EST Office Visit [facility] MED[facility] [address] [place] [address] Boo Nunez MD [address] [place] [address] documented as of this encounter Procedures Procedure Name Priority Date/Time Associated Diagnosis Comments HM COLONOSCOPY Routine 09/28/2015 7:46 AM EST documented in this encounter Results * Hm Colonoscopy (09/28/2015 7:46 AM EST) Historical Provider HEALTH MAINTENANCE Final Result documented in this encounter Visit Diagnoses Not on filedocumented in this encounter Additional Health Concerns Assessment Noted Time PHQ-9 Depression Total Score: 14 024 12:37 PM EDT documented as of this encounter Care Teams Mixed Livestock Farmer Relationship Specialty Start Date End Date Linh Peralta DO [address] [place] [address] PCP - General Family Medicine 08/13/18 documented as of this encounter
--- OUTSIDE RECORDS SUMMARY | 2024-09-26 12:30 | XMS_ITS | Encounter Summary ---
Author Organization [employer] Address 75 [facility] 7t [place] [address] Care Team Providers Care Spring Floor Service Worker Name Role Phone Linh Peralta DO Primary Care Provider [phone] Encounter Details Date Type Department Care Team (Latest Contact Info) Description 09/26/2024 Travel Social History Tobacco Use Types Packs/Day [...] Answer Date Recorded Patient Health Questionnaire-9 Score 0 09/26/2024 Patient Health Questionnaire-9 Score 0 09/26/2024 Last PHQ-9: Questionnaire Data Not on file 0 09/26/2024 Housing Stability Answer Date Recorded What is [...] Date Recorded Patient Health Questionnaire-2 Score 0 09/26/2024 Internet Access Answer Date Recorded Internet Access [...] Description 10/15/2024 9:00 AM EST Office Visit [facility] MEDICINE 230 [place] [address] Boo Nunez MD 230 [place] [address] documented as of this encounter Visit Diagnoses Not on filedocumented in this encounter Additional Health Concerns Assessment Noted Time PHQ-9 Depression Total Score: 0 09/26/19 25 11:07 AM EST documented as of this encounter Care Teams Spring Floor Service Worker Relationship Specialty Start Date End Date Linh Peralta DO [address] [place] [address] PCP - General Family Medicine 08/13/18 documented as of this encounter
--- OUTSIDE RECORDS SUMMARY | 2024-09-26 12:30 | XMS_ITS | Encounter Summary ---
Author Organization [employer] Address [address] [facility] 7t [place] [address] Care Team Providers Care Senior Cobol Developer Name Role Phone Linh Peralta DO Primary Care Provider + [phone] Reason for Visit * Reason Comments [facility] Recovery Supports Encounter Details Date Type Department Care Team ([facility] st Contact Info) Description 09/10/2024 Patient Outreach [facility] MEDICINE 230 [place] [address] Navi Forbes Recovery Supports Social History Tobacco Use Types [...] as of this encounter Progress Notes * Navi Forbes - 09/10/2024 3:43 PM EST I met with Bernardo keita. Setting: in person at [facility] Recovery Wellness Goals worked on: Social Stability Action taken/next steps: Attended recovery support group and Offered person centered recovery support Additional comments: LIDYA Forbes documented in this encounter Plan of Treatment Upcoming Encounters Date Type Department Care Team (Late st Contact Info) Description 10/15/2024 9:00 AM EST Office Visit [facility] MEDICINE [address] [place] [address] Boo Nunez MD [address] [place] [address] documented as of this encounter Visit Diagnoses Not on filedocumented in this encounter Additional Health Concerns Assessment Noted Time PHQ-9 Depression Total Score: 14 024 12:37 PM EDT documented as of this encounter Care Teams Senior Cobol Developer Relationship Specialty Start Date End Date Linh Peralta DO 230 [place] [address] PCP - General Family Medicine 08/13/18 documented as of this encounter
--- OUTSIDE RECORDS SUMMARY | 2024-09-26 12:30 | XMS_ITS | Encounter Summary ---
Author Organization [employer] [facility] Address [address] [place] [address] 7t h [place] [phone] Care Team Providers Care Manager Of Financial Name Role Phone Linh Peralta DO Primary Care Provider [phone] Encounter Details Date Type Department Care Team (Late st Contact Info) Description 04/26/2023 Telephone [facility] MEDICINE [address] [place] [address] [phone] Linh Peralta DO [address] [place] [phone] Social History Tobacco Use Types Packs/Day Years Used Date Smoking Tobacco: Every Day Cigarettes Last attempted to quit: 08/13/2022 Passive Smoke Exposure: Current Smokeless Tobacco: Never Alcohol Use Standard Drinks/Week Comments Never 0 (1 standard drink = 0.6 oz pur e alcohol) PHQ-2 Answer Date Recorded Patient Health Questionnaire-2 Score 2 12/20/2022 Sex and Gender Information Value Date Recorded Sex Assigned at Male 06/12/2022 10:20 AM EDT Legal Sex Male 10:20 AM EDT Gender Identity Male 06/12/2022 10:20 AM EDT Sexual Orientation Straight 06/12/2022 10 :20 AM EDT documented as of this encounter Plan of Treatment Upcoming Encounters Date Type Department Care Team (Late st Contact Info) Description 10/15/2024 9:00 AM EST Office Visit [facility] MEDICINE [address] [place] [phone] Boo Nunez MD [address] [place] [phone] documented as of this encounter Visit Diagnoses Not on filedocumented in this encounter Additional Health Concerns Assessment Noted Time PHQ-9 Depression Total Score: 5 12/21/19 23 9:07 AM EDT documented as of this encounter Care Teams Manager Of Financial Relationship Specialty Start Date End Date Linh Peralta DO [address] [place] [address] PCP - General Family Medicine 08/13/18 documented as of this encounter
--- OUTSIDE RECORDS SUMMARY | 2024-09-26 12:30 | XMS_ITS | Encounter Summary ---
Author Organization [employer] Address [address] [facility] 7t [place] [address] Care Team Providers Care Lining Marker Name Role Phone Linh Peralta DO Primary Care Provider [phone] Encounter Details Date Type Department Care Team (Latest Contact Info) Description 08/27/2024 Travel Social History Tobacco Use Types Packs/Day [...] Description 10/15/2024 9:00 AM EST Office Visit [facility] MEDICINE 230 [place] [address] Boo Nunez MD 230 [place] [address] documented as of this encounter Visit Diagnoses Not on filedocumented in this encounter Additional Health Concerns Assessment Noted Time PHQ-9 Depression Total Score: 14 024 12:37 PM EDT documented as of this encounter Care Teams Lining Marker Relationship Specialty Start Date End Date Linh Peralta DO [address] [place] [phone] PCP - General Family Medicine 08/13/18 documented as of this encounter
--- OUTSIDE RECORDS SUMMARY | 2024-09-26 12:30 | XMS_ITS | Encounter Summary ---
Author Organization [employer] Address [address] [place] [address] 7[place] [address] Care Team Providers Care Supervisor Engine Assembly Name Role Phone Linh Peralta DO Primary Care Provider [phone] Reason for Visit * Reason Comments Med Refill Encounter Details Date Type Department Care Team (Late Contact Info) Description 03/23/2023 Refill [facility] MEDICINE [address] [place] [address] Linh Peralta DO [address] [place] [address] Bipolar disease, chronic (CMS/HCC) Social History Tobacco Use Types Packs/Day [...] suspected to have Coronavirus/COVID-19? No / Unsure 02/21/2023 8:58 AM EDT documented as of this encounter Plan of Treatment Upcoming Encounters Date Type Department Care Team (Late Contact Info) Description 10/15/2024 9:00 AM EST Office Visit [facility] MEDICINE [address] [place] [address] Boo Nunez MD [address] [place] [address] documented as of this encounter Visit Diagnoses Diagnosis Bipolar disease, chronic (CMS/HCC) documented in this encounter Additional Health Concerns Assessment Noted Time PHQ-9 Depression Total Score: 5 12/21/19 23 9:07 AM EDT documented as of this encounter Care Teams Supervisor Engine Assembly Relationship Specialty Start Date End Date Linh Peralta DO [address] [place] [address] PCP - General Family Medicine 08/13/18 documented as of this encounter
--- OUTSIDE RECORDS SUMMARY | 2024-09-26 12:30 | XMS_ITS | Encounter Summary ---
Author Organization [employer] Address [address] [place] [address] 7t [place] [address] Care Team Providers Care Remote Operations Producer Name Role Phone Linh Peralta DO Primary Care Provider + [phone] Reason for Visit * Reason Comments GBAT Encounter Details Date Type Department Care Team (Latest Contact Info) Description 09/10/2024 9:00 AM EST Office Visit [facility] MEDICINE 230 [place], [place] [phone] Boo Nunez MD [address] [place] [address] Opioid dependence, uncomplicated (CMS/HCC) (Primary Dx) Social History Tobacco Use Types Packs/Day Years [...] the past 12 months, has t he [employer], gas, oil or water company threatened to [...] as of this encounter Progress Notes * Boo Nunez MD - 09/10/2024 9:00 AM EST Patient has been in program for 14 years 7 months. INDUCTION DATE: 01/21/2010 Patient enrolled in behavioral health program. He is seeing Dr. Magdaleno at [facility]. Current dose of Suboxone is 24/6mg SL daily Yearly LFT''s completed: 05/14/2023 Hep A: Immune Hep B: Immune COVID: #1 rec'd 10/29/20; #2 rec'd 11/26/20. Booster received on 08/16/21 LAST PCP appt: 02/21/2024 Undergone Epclusa for Hep C treatment LAST GBAT VISIT 09/03/2024 Patient presents for Group-Based Opioid Treatment for OUD Reviewed the group goals, expectations and policies Consented to the group treatment options Actively participated in the group discussion with the topic of: Values in Recovery Following staff present at the visit: Physician, Visual Training Aide, Clinician, Team RN, and MedicalAssistant Opportunities provided to address individual medical/medication/ concerns States doing well without cravings or relapse LAST GBAT VISIT 09/03/2024 Last UTOX (08/20/2024): POS THC, BUP Patient presents for Group-Based Opioid Treatment for OUD Reviewed the group goals, expectations and policies Consented to the group treatment options Actively participated in the group discussion with the topic of: Extended Check-In Following staff present at the visit: Physician, Visual Training Aide, Clinician, Team RN, and MedicalAssistant Opportunities provided to address individual medical/medication/BH concerns States doing well without cravings or relapse Review of Systems Psychiatric/Behavioral: Negative for behavioral problems and dysphoric mood. The patient is not nervous/anxious. Physical Exam Constitutional: Appearance: Normal appearance. Pulmonary: Effort: Pulmonary effort is normal. Neurological: Mental Status: He is alert. Psychiatric: Mood and Affect: Mood normal. Behavior: Behavior normal. Bernardo was seen today for gbat. Diagnoses and all orders for this visit: Opioid dependence, uncomplicated (CMS/HCC) (Primary) Patient presents for Group-Based Addiction Treatment of OUD Reviewed the group goals, expectations and policies Consented to the group treatment options Actively participated in the group discussed Future discussion topics reviewed Patient is tolerating current treatment of Buprenorphine Reviewed behavioral modification and accessing services Group counseling provided with a focus on support system, tools for achieving/maintaining recovery Reviewed barriers for these goals Discussed strategies to address when faced situations that may trigger use [place] STAFF DESIGN ENGINEER reviewed Following staff present at the visit: Physician, Team RN, Clinician, Visual Training Aide and Gas Line Servicer Follow up in 1 week for the next GBAT meeting This information has been disclosed to you from records protected by federal confidentiality rules (42 CFR Part 2). The federal rules prohibit you from making any further disclosure of information inthis record that identifies a patient as having or having had a substance use disorder either directly, by reference to publicly available information, or through verification of such identification by another person unless further disclosure is expressly permitted by the written consent of the individual whose information is being disclosed or as otherwise permitted by (see2.3.1). The federal rules restrict any use of the information to investigate or prosecute with regard to a crime any patient with a substance use disorder, except as provided at 2.12??(5) and 2.65. documented in this encounter Plan of Treatment Upcoming Encounters Date Type Department Care Team (Late st Contact Info) Description 10/15/2024 9:00 AM EST Office Visit [facility] MEDICINE [address] [place] [address] Boo Nunez MD [address] [place] [address] documented as of this encounter Visit Diagnoses Diagnosis Opioid dependence, uncomplicated (CMS/HCC)- Primary documented in this encounter Additional Health Concerns Assessment Noted Time PHQ-9 Depression Total Score: 14 024 12:37 PM EDT documented as of this encounter Care Teams Remote Operations Producer Relationship Specialty Start Date End Date Linh Peralta DO [address] [place], [place] [phone] PCP - General Family Medicine 08/13/18 documented as of this encounter
--- OUTSIDE RECORDS SUMMARY | 2024-09-26 12:30 | XMS_ITS | Encounter Summary ---
Author Organization [employer] Address [address] [place] [address] [address] [place] [address] Care Team Providers Care Business Case Analyst Name Role Phone Linh Peralta DO Primary Care Provider + [phone] Reason for Visit * Reason Comments GBAT Encounter Details Date Type Department Care Team (Latest Contact Info) Description 08/27/2024 9:00 AM EST Office Visit [facility] [address] [place], [place] [phone] Boo Nunez MD [address] [place] [address] Opioid dependence, uncomplicated (CMS/HCC) (Primary Dx) Social [...] the past 12 months, has t he [employer], gas, oil or water company threatened to [...] Progress Notes * Boo Nunez MD - 08/27/2024 9:00 AM EST Patient has been in program for 14 years 7 months. INDUCTION DATE: 01/21/2010 Patient enrolled in behavioral health program. He is seeing Dr. Magdaleno at [facility]. Current dose of Suboxone is 24/6mg SL daily Yearly LFT''s completed: 05/14/2023 Hep A: Immune Hep B: Immune COVID: #1 rec'd 10/29/20; #2 rec'd 11/26/20. Booster received on 08/16/21 LAST PCP appt: 02/21/2024 Undergone Epclusa for Hep C treatment LAST GBAT VISIT 08/20/2024 UTOX: POS BUP, THC NEG FOR FEN & ALL OTHER SUBSTANCES Patient presents for Group-Based Opioid Treatment for OUD Reviewed the group goals, expectations and policies Consented to the group treatment options Actively participated in the group discussion with the topic of: Goals and Challenges for 2024 Following staff present at the visit: Physician, Gravel Hauler, Clinician, Team RN, and MedicalAssistant Opportunities provided to address individual medical/medication/ concerns States doing well without cravings or relapse TODAY GBAT VISIT 08/27/2024 Patient presents for Group-Based Opioid Treatment for OUD Reviewed the group goals, expectations and policies Consented to the group treatment options Actively participated in the group discussion with the topic of: Forgiveness Following staff present at the visit: Physician, Gravel Hauler, Clinician, Team RN, and MedicalAssistant Opportunities provided [...] faced situations that may trigger use Mass CONVERTER OPERATOR reviewed Following staff present at the visit: Physician, Team RN, Clinician, Gravel Hauler and Boiler Room Operator Follow up in 1 week for the [...] 10/15/2024 9:00 AM EST Office Visit [facility] [address] [place] [address] Boo Nunez MD [address] [place] [address] documented as of this encounter Visit Diagnoses Diagnosis Opioid dependence, uncomplicated (CMS/HCC)- Primary documented in this encounter Additional Health Concerns Assessment Noted Time PHQ-9 Depression Total Score: 14 024 12:37 PM EDT documented as of this encounter Care Teams Business Case Analyst Relationship Specialty Start Date End Date Linh Peralta DO [address] [place] [address] PCP - General Family Medicine 08/13/18 documented as of this encounter
--- OUTSIDE RECORDS SUMMARY | 2024-09-26 12:30 | XMS_ITS | Encounter Summary ---
Author Organization [employer] Address [address] [place] [address] Care Team Providers Care Child Study Team Director Name Role Phone Linh Peralta DO Primary Care Provider + [phone] Reason for Visit * Reason Comments [facility] Recovery Supports Encounter Details Date Type Department Care Team ([facility] st Contact Info) Description 09/05/2024 Patient Outreach [facility] MED[facility]INE [address] [place] [address] Navi Forbes Recovery Supports Social History Tobacco [...] encounter Progress Notes * Navi Forbes - 09/05/2024 2:58 PM EST I met with Bernardo keita. Setting: in person at [facility] Recovery Wellness Goals worked on: Social Stability Action taken/next steps: Offered person centered recovery support and Attended alcohol and drug free activity Additional comments: Pt came to Recovery Sunday. Navi Forbes documented in this encounter Plan of Treatment Upcoming Encounters Date Type Department Care Team (Late st Contact Info) Description 10/15/2024 9:00 AM EST Office Visit [facility]INE [address] [place] [address] Boo Nunez MD [address] [place] [address] documented as of this encounter Visit Diagnoses Not on filedocumented in this encounter Additional Health Concerns Assessment Noted Time PHQ-9 Depression Total Score: 14 024 12:37 PM EDT documented as of this encounter Care Teams Child Study Team Director Relationship Specialty Start Date End Date Linh Peralta DO [address] [place] [address] PCP - General Family Medicine 08/13/18 documented as of this encounter
--- OUTSIDE RECORDS SUMMARY | 2024-09-26 12:30 | XMS_ITS | Encounter Summary ---
Author Organization [employer] Address [address] [place] [address] [address] [place] [address] Care Team Providers Care Photo Print Specialist Name Role Phone Linh Peralta DO Primary Care Provider + [phone] Reason for Visit * Reason Comments Recovery Supports Encounter Details Date Type Department Care Team ([facility] st Contact Info) Description 09/05/2024 Patient Outreach [facility]INE [address] [place] [address] Joesph Bajwa [address] [place] [address] Recovery Supports Social History Tobacco Use Types [...] encounter Progress Notes * Joesph Bajwa - 09/05/2024 4:13 PM EST I met with Bernardo today. Setting: in person at [facility] Recovery Wellness Goals worked on: Physical [...] Office Visit [facility] [address] [place] [address] Boo Nunez MD [address] [place] [address] documented as of this encounter Visit Diagnoses Not on filedocumented in this encounter Additional Health Concerns Assessment Noted Time PHQ-9 Depression Total Score: 14 024 12:37 PM EDT documented as of this encounter Care Teams Photo Print Specialist Relationship Specialty Start Date End Date Linh Peralta DO [address] [place] [address] PCP - General Family Medicine 08/13/18 documented as of this encounter
--- OUTSIDE RECORDS SUMMARY | 2024-09-26 12:30 | XMS_ITS | Encounter Summary ---
Author Organization [employer] Address [address] [facility] [address] [place] [address] Care Team Providers Care Certified Nurse Practitioner Name Role Phone Linh Peralta DO Primary Care Provider [phone] Encounter Details Date Type Department Care Team (Latest Contact Info) Description 09/10/2024 Travel Social History Tobacco Use Types Packs/Day [...] Description 10/15/2024 9:00 AM EST Office Visit [facility]INE [address] [place] [address] Boo Nunez MD [address] [place] [address] documented as of this encounter Visit Diagnoses Not on filedocumented in this encounter Additional Health Concerns Assessment Noted Time PHQ-9 Depression Total Score: 14 024 12:37 PM EDT documented as of this encounter Care Teams Certified Nurse Practitioner Relationship Specialty Start Date End Date Linh Peralta DO [address] [place] [id number] PCP - General Family Medicine 08/13/18 documented as of this encounter
--- OUTSIDE RECORDS SUMMARY | 2024-09-26 12:30 | XMS_ITS | Encounter Summary ---
Author Organization [employer] Address [address] [place] [address] [address] [place] [address] Care Team Providers Care Certified Control Systems Technician Name Role Phone Linh Peralta DO Primary Care Provider + [phone] Reason for Visit * Reason Comments GBAT Encounter Details Date Type Department Care Team (Latest Contact Info) Description 09/03/2024 9:00 AM EST Office Visit [facility] [address] [place], [place] [phone] Boo Nunez MD [address] [place] [address] Opioid dependence, uncomplicated (CMS/HCC) (Primary Dx) Social [...] the past 12 months, has t he [employer], gas, oil or water company threatened to [...] Progress Notes * Boo Nunez MD - 09/03/2024 9:00 AM EST Patient has been in program for 14 years 7 months. INDUCTION DATE: 01/21/2010 Patient enrolled in behavioral health program. He is seeing Dr. Magdaleno at [facility]. Current dose of Suboxone is 24/6mg SL daily Yearly LFT''s completed: 05/14/2023 Hep A: Immune Hep B: Immune COVID: #1 rec'd 10/29/20; #2 rec'd 11/26/20. Booster received on 08/16/21 LAST PCP appt: 02/21/2024 Undergone Epclusa for Hep C treatment LAST GBAT VISIT 08/27/2024 Patient presents for Group-Based Opioid Treatment for OUD Reviewed the group goals, expectations and policies Consented to the group treatment options Actively participated in the group discussion with the topic of: Forgiveness Following staff present at the visit: Physician, Bag Sealer, Clinician, Team RN, and MedicalAssistant Opportunities provided to address individual medical/medication/ concerns States doing well without cravings or relapse TODAY GBAT VISIT 09/03/2024 Patient presents for Group-Based Opioid Treatment for OUD Reviewed the group goals, expectations and policies Consented to the group treatment options Actively participated in the group discussion with the topic of: Values in Recovery Following staff present at the visit: Physician, Bag Sealer, Clinician, Team RN, and MedicalAssistant Opportunities provided [...] faced situations that may trigger use Mass PODIATRY PROFESSOR reviewed Following staff present at the visit: Physician, Team RN, Clinician, Bag Sealer and Health Manager Follow up in 1 week for the [...] Description 10/15/2024 9:00 AM EST Office Visit [facility] [address] [place] [address] Boo Nunez MD [address] [place] [address] documented as of this encounter Visit Diagnoses Diagnosis Opioid dependence, uncomplicated (CMS/HCC)- Primary documented in this encounter Additional Health Concerns Assessment Noted Time PHQ-9 Depression Total Score: 14 024 12:37 PM EDT documented as of this encounter Care Teams Certified Control Systems Technician Relationship Specialty Start Date End Date Linh Peralta DO [address] [place] [address] PCP - General Family Medicine 08/13/18 documented as of this encounter
--- OUTSIDE RECORDS SUMMARY | 2024-09-26 12:30 | XMS_ITS | Clinical Summary ---
Author Organization [employer] Address [address] [facility] [address] [place] [address] Care Team Providers Care Dust Puller Name Role Phone Linh Peralta DO Primary Care Provider + [phone] Allergies No known active allergies Medications * This document contains information received from the source organization and may not represent a complete record from that organization. Blood Glucose Monitoring Suppl (FreeStyle Lite) w/Device kitIndications:T ype 2 diabetes mellitus without complication, without long-term current use of insulin ([facility]) 1 kit in the morning. 1 kit 023 Active Blood Pressure kit 1 each 1 (one) time per week. 1 kit 024 Active Alcohol Swabs (Alcohol Prep) 70 % pads USE TWICE DAILY 100 each 11 024 Active tamsulosin (Flomax) 0.4 MG 24 hr capsule TAKE 1 CAPSULE BY MOUTH EVERY EVENING 30 capsule 5 024 Active dextran 70-hypromellose (artificial tears) 0.1-0.3 % ophthalmic solutionIndicati ons:Dry eye syndrome, bilateral Administer 1 drop into both eyes if needed in the morning and at bedtime for dry eyes. 15 mL 3 024 2024 Active atorvastatin (Lipitor) 20 MG tablet TAKE 1 TABLET BY MOUTH EVERY EVENING 90 tablet 3 Active lisinopril 10 MG tablet TAKE 1 TABLET BY MOUTH EVERY MORNING 90 tablet 3 Active TRUEplus Lancets 33G misc TEST BLOOD SUGAR ONCE DAILY 100 each 11 024 Active OneTouch Ultra Test test strip USE TO TEST BLOOD SUGAR EVERY DAY 50 strip 11 Active hydroCHLOROthiaz yogi (HYDRODiuril) 25 MG tablet TAKE 1 TABLET BY MOUTH EVERY MORNING 90 tablet 1 Active metFORMIN (Glucophage) 500 MG tablet TAKE 1 TABLET BY MOUTH EVERY EVENING WITH FOOD 90 tablet 1 024 Active buprenorphine-na loxone (Suboxone) 8-2 MG SL tabletIndication s:Opioid dependence, uncomplicated (CMS/HCC) Place 3 tablets under the tongue Once per day for 28 days. Do not start before September 17, 2024. 84 tablet 025 2024 Active QUEtiapine (SEROquel) 200 MG tablet Active naloxone (Narcan) 4 mg/0.1 mL nasal spray May repeat every 2-3 minutes if needed, alternating nostrils, until medical assistance becomes available. 2 each 3 Active cholecalciferol VITAMIN D (Vitamin D-3) 50 MCG (1999 UT) tabletIndication s:Vitamin D deficiency TAKE 1 TABLET BY MOUTH EVERY MORNING 90 tablet 3 Active polyethylene glycol, PEG, 3350 (MiraLax) 17 GM/SCOOP powder Take 17 g by mouth if needed each day (constipation) . 527 g 2 025 2025 Active polycarbophil (Fibercon) 625 MG tablet Take 1 tablet (625 mg) by mouth 2 times daily. 180 tablet 3 025 2025 Active docusate sodium (Colace) 100 MG capsuleIndicatio ns:Constipation, unspecified constipation type Take 1 capsule (100 mg) by mouth 2 times daily. 180 capsule 3 025 2025 Active ibuprofen 800 MG tablet take 1 tablet by oral route 3 times every day with food 2024 Discontinued(M ed list cleanup (will not trigger notification to Pharmacy)) naloxone (Narcan) 4 mg/0.1 mL nasal spray spray 0.1 milliliter by intranasal route in 1 nostril may repeat dose every 2-3 minutes as needed alternating nostrils with each dose 022 2024 Discontinued(R eorder (will not trigger notification to Pharmacy)) triamcinolone (Kenalog) 0.1 % creamIndications :Dermatitis APPLY TO THE AFFECTED AREA(S) SPARINGLY TWICE DAILY NEEDED 30 g 2 023 2024 Discontinued(M ed list cleanup (will not trigger notification to Pharmacy)) cholecalciferol (Vitamin D-3) 50 MCG (1999) tabletIndication s:Vitamin D deficiency TAKE 1 TABLET BY MOUTH EVERY MORNING 90 tablet 3 024 2024 Discontinued docusate sodium (Colace) 100 MG capsuleIndicatio ns:Constipation, unspecified constipation type Take 1 capsule (100 mg) by mouth Once per day. 30 capsule 11 024 2024 Discontinued(R eorder (will not trigger notification to Pharmacy)) QUEtiapine (SEROquel) 100 MG tabletIndication s:Bipolar disease, chronic (CMS/HCC) TAKE 2 TABLETS BY MOUTH AT BEDTIME 60 tablet 3 024 2024 Discontinued(M ed list cleanup (will not trigger notification to Pharmacy)) QUEtiapine (SEROquel) 25 MG tablet Take 25 mg by mouth 2 times daily. 024 2024 Discontinued(M ed list cleanup (will not trigger notification to Pharmacy)) buprenorphine-na loxone (Suboxone) 8-2 MG SL tabletIndication s:Opioid dependence, uncomplicated (CMS/HCC) Place 3 tablets under the tongue Once per day for 28 days. Do not start before August 20, 2024. 84 tablet 025 2024 Discontinued(R eorder (will not trigger notification to Pharmacy)) Active Problems Problem Noted Date Diagnosed Date Cerebral microvascular disease 05/22/2024 Encounter for preventive health examination 02/10 Assessment & Plan (02/21/2024 9:47 AM EDT): Discussed with patient re increase fresh fruit and vegetable intake. Counseled re moderate exercise as tolerated, up to 20min/d Patient feels safe at home. Eye exam: overdue. Referral information given to patient today. CRC screen: UTD, next one due 2022 + 2025/2027 (CA x 2) Lipids/FBS: UTD, next one due May 2024 Vaccinations: All vaccinations are UTD, follow up with PCP for seasonal immunizations. Dental visit: Overdue, advised to make an appointment in our dental clinic. Healthcare maintenance 11/13/2023 VEE (generalized anxiety disorder) 05/22/2023 Assessment & Plan (05/22/2023 2:30 PM EDT): Assessment:Patient with depressive sxs such as anhedonia, feeling down, sleep disturbance, poor appetite, diminished ability to concentrate, forgetfulness, restlessness. Also reported anxiety sxs such as anxiousness, persistent worry, irritability and fearfulness. He is on agonist therapy has been sober for over 20 months, continues to struggle with cravings at times, but has been able to manage it. Factors contributing to his symptoms are, fearfulness of a relapse, stress relationship with partner. Patient will benefit from Psychiatrist services as he already has a therapist but the Psychiatrist from that agency denied him the services. ?? At this time Bernardo Padilla meets criteria for Visit Diagnoses: Problem List Items Addressed This Visit ? Other ?? Opioid dependence, uncomplicated (CMS/HCC) ?? VEE (generalized anxiety disorder) ?? Current moderate episode of major depressive disorder without prior episode (CMS/HCC) ?? Patient ready to address current needs Yes ?? Strengths include willing to engage in treatment ?? PLAN: 1. Follow up with [facility]: Recommended for follow-up: in 2 weeks 2. Patient goal is to received Med Management and maintain sobriety 3. Behavioral Recommendations a. Psychiatrist, referral will be submitted b. Use of skill provide to improve communication c. Keeping OBAT appts Hx of intravenous drug use, in remission 023 Gallbladder polyp 03/16/2023 Hyperlipidemia 08/16/2022 Type 2 diabetes mellitus 08/16/2022 Assessment & Plan (02/21/2024 9:48 AM EDT): Last A1c was normal, follow up with PCP as scheduled. Tinnitus 08/16/2022 Urinary incontinence 08/16/2022 BPH (benign prostatic hyperplasia) 08/16/2022 History of nephrolithiasis 08/16/2022 Alopecia 08/16/2022 Osteoarthritis 08/16/2022 Tubular adenoma 08/16/2022 Bipolar disease, chronic 11/23/2016 History of hepatitis C 11/23/2016 Essential hypertension 11/23/2016 Genital herpes simplex 11/23/2016 Opioid dependence, uncomplicated 11/23/2016 Resolved Problems Problem Noted Date Diagnosed Date Resolved Date Current moderate episode of major depressive disorder without prior episode 05/22/2023 Type 2 diabetes mellitus wit hout complication, without long-term current use of insulin 08/16/2022 08/16/2022 Elevated fasting glucose 11/23/201611/2022 Pain in toe 11/23/2016 08/16/2022 Encounters Date Type Department Care Team Description 09/26/2024 11:15 AM EST Office Visit [address] [address] Linh Peralta DO History of hepatitis C (Primary Dx); Type 2 diabetes mellitus without complication, without long-term current use of insulin (CMS/HCC); Constipation, unspecified constipation type 09/26/2024 Travel 09/24/[address] [address] Linh Peralta DO Vitamin D deficiency 09/17/2024 9:00 AM EST Office Visit [address] [address] Boo Nunez MD Opioid type dependence, continuous (CMS/HCC) (Primary Dx) 09/17/[address] [address] Linh Peralta DO Opioid dependence, uncomplicated (CMS/HCC) (Primary Dx) 09/17/2024 Travel 09/16/2024 Patient Outreach [address] [address] Joesph Bajwa [facility] 09/15/2024 Patient Outreach [address] [address] Joesph Bajwa [facility] 09/15/2024 Patient Outreach [address] [address] Linh Peralta DO Pre-visit Planning (SDOH screening negative and tobacco screening positive) 09/11/2024 Patient Outreach [address] [address] Joesph aBjwa [facility] 09/10/2024 9:00 AM EST Office Visit [facility] [address] [place] [address] Boo Nunez MD Opioid dependence, uncomplicated (CMS/HCC) (Primary Dx) 09/10/2024 Refill [facility] [address] [place] [address] Lore Khna RN Opioid dependence, uncomplicated (CMS/HCC) 09/10/2024 Patient Outreach [facility] [address] [facility] [place] [address] Navi Forbes RC [facility] 09/10/2024 Travel 09/08/2024 Patient Outreach [facility] [address] [facility] [place] [address] Joesph Bajwa [facility] 09/05/2024 Patient Outreach [facility] [place] [address] Joesph Bajwa [facility] 09/05/2024 Patient Outreach [facility] [address] [facility] [place] [address] Navi Forbes RC [facility] 09/03/2024 9:00 AM EST Office Visit [facility] [place] [address] Boo Nunez MD Opioid dependence, uncomplicated (CMS/HCC) (Primary Dx) 09/03/2024 Travel 09/02/2024 Patient Outreach [facility] [place] [address] Jono Strickland [facility] 08/29/2024 Patient Outreach [facility] [address] [facility] [place] [address] Joesph Bajwa [facility] 08/27/2024 9:00 AM EST Office Visit [facility] [place] [address] Boo Nunez MD Opioid dependence, uncomplicated (CMS/HCC) (Primary Dx) 08/27/2024 Travel 08/26/2024 Patient Outreach [facility] [address] [facility] [place] [address] Jono Strickland [facility] 08/26/2024 Patient Outreach [facility] [address] [place] [address] Jono Strickland [facility] 08/25/2024 Patient Outreach [facility] [address] [place] [address] Joesph Bajwa RC [facility] 08/20/2024 9:00 AM EST Office Visit [facility] [address] [place] [address] Boo Nunez MD Opioid dependence, uncomplicated (CMS/HCC) (Primary Dx) 08/20/2024 Travel 08/19/2024 Patient Outreach [facility] [address] [place] [address] Jono Strickland RC [facility] 08/18/2024 Patient Outreach [facility] [address] [place] [address] Joesph Bajwa RC [facility] 08/18/2024 Patient Outreach [facility] [address] [facility] [place] [address] Tino Tucker RC [facility] 08/15/2024 Refill [facility] [address] [facility] [place] [address] Lore Khan, JUSTYNA Opioid dependence, uncomplicated (CMS/HCC) 08/04/2024 Patient Outreach [facility] [address] [facility] [place] [address] Joesph Bajwa [facility] 08/04/2024 Refill [facility] [address] [facility] [place] [address] Linh Peralta, 08/04/2024 Patient Outreach [facility] [address] [facility] [place] [address] Jono Strickland RC [facility] 07/31/2024 Patient Outreach [facility] [address] [facility] [place] [address] Tino Tucker [facility] 07/30/2024 9:00 AM EST Office Visit [facility] [address] [place] [address] Boo Nunez MD Opioid dependence, uncomplicated (CMS/HCC) (Primary Dx) 07/30/2024 Travel 07/29/2024 Patient Outreach [facility] [address] [facility] [place] [address] Joesph Bajwa [facility] 07/23/2024 9:00 AM EST Office Visit [facility] [address] [place] [address] Boo Nunez MD Opioid type dependence, continuous ([facility]/HCC) (Primary Dx) 07/23/2024 Travel 07/22/2024 Patient Outreach [facility] [address] [place] [address] StricklandJono [facility] 07/21/2024 Refill [facility] [address], [place] [phone] Lore Khan RN Opioid dependence, uncomplicated ([facility]) from Last 3 Months Immunizations Name Administration Dates Next Due Influenza injectable quadriv alent IIV4 with preservative 06/06/2018,10/11/2017 Influenza injectable quadriv alent preservative free 05/08/2023,05/17/2022,09/15/2021,05/31,07/22/2019 Influenza, IIV3, injectable 06/17/2014, 1,04/21/2011 Influenza, Split (incl. aparna fied surface antigen) 07/04/2013,05/02/2012 Influenza, seasonal, injecta ble, preservative free 05/22/2024 Moderna Covid-19 Vaccine 12+ 08/16/2021,11/27/19 21,10/29/2020 Moderna Covid-19 Vaccine 6+ Bivalent 08/03/2022 Pfizer Covid-19 Vaccine 12+ 05/22/2024, Pneumococcal Conjugate PCV 20 09/14/2023 Pneumococcal Polysaccharide PPSV23 06/16/2011 RSV Bivalent 09/14/2023 Tdap 11/25/2019,11/15/2009 Zoster, Recombinant 03/02/2022,12/21/2021 Family History Medical History Relation Name Comments Hypertension Brother Parkinsonism Father Coronary artery disease Mother Relation Name Status Comments Brother Father Mother Social History Tobacco Use Types Packs/Day Years Used Date Smoking Tobacco: Every Day Cigarettes Last attempted to quit: 08/13/2022 Passive Smoke Exposure: Current Smokeless Tobacco: Never Tobacco Cessation:Ready to Q uit: Not Asked; Counseling Given: Not Answered Comments:Attempting to quit, has not smoked for [...] Orientation Straight 06/12/2022 10 :20 AM EDT Last Filed Vital Signs Vital Sign Reading Time Taken Comments Blood Pressure 128/70 09/26/2024 11:05 AM EST Pulse 89 09/26/2024 11:05 AM EST Temperature 36.3 ??C (97.3 ??F) 09/26/2024 11:[address] Respiratory Rate 19 09/26/2024 11:05 AM EST Oxygen Saturation 98% 09/26/2024 11:05 AM EST Inhaled Oxygen Concentration - - Weight 69.9 kg (154 lb) 09/26/2024 11:05 AM EST Height 162.6 cm (5' 4 ) 09/26/2024 11:05 AM EST Body Mass Index 26.43 09/26/2024 11:05 AM EST Plan of Treatment Upcoming Encounters Date Type Department Care Team (Late st Contact Info) Description 10/15/2024 9:00 AM EST Office Visit [facility] [address] [place] [address] Boo Nunez MD [address] [place], [place] [phone] Health Maintenance Due Date Last Done Comments CT Colonography 1961 Dental Oral Exam 1961 Dental Prophylaxis 1961 Dental X-Ray: Bitewings 1961 FIT DNA/Cologuard 1961 FIT 1961 FOBT 1961 Sigmoidoscopy 1961 Alcohol/Substance Use Screening 1973 Hepatitis A Vaccines (1 of 2 - Risk 2-dose series) 1980 Hepatitis B Vaccines (1 of 3 - Risk 3-dose series) 2021 Diabetes: Urine Protein Screening 05/14/2024 05/14/2023, 06/21/2021 Lipid Panel 05/14/2024 05/14/2023, 01/0 01/2023, 06/21/2021 Dental X-Ray: Full Mouth 11/16/2024 11/15/2021 Diabetes: Foot Exam 02/20/2025 02/21/2024, 02/21/2024, 02/21/2024, Additional history exists Diabetes: Hemoglobin A1C 03/26/2025 02/ 025, 11/13/2023, 05/14/2023, Additional history exists Colonoscopy 04/18/2025 04/18/2023, 09/28/2015 Colorectal Cancer Screening 04/18/2025 SDOH Screening 09/15/2025 09/15/2024 Depression Screening 09/26/2025 09/26/2024, 09/26/19 25 Tobacco Screening 09/26/2025 09/26/2024 Eye Exam 05/20/2026 05/20/2024, 03/2024, 05/20/2024, Additional history exists DTaP/Tdap/Td Vaccines (3 - Td or Tdap) 11/24/2029 11/25/2019, 11/15/2009 Zoster Vaccines Completed 03/02/2022, 12/21/2021 HIV Screening Completed 05/14/2023, 01/2023, 12/14/2021, Additional history exists Pneumococcal Vaccine: 50+ Years Completed 09/14/2023, 06/16/2011 RSV Patients and Patients Aged 60 years or older Completed 09/14/2023 COVID-19 Vaccine Completed 05/22/2024, 09/2023, 08/03/2022, Additional history exists Influenza Vaccine Completed 05/22/2024, , 05/17/2022, Additional history exists HIB Vaccines Aged Out No longer eligi ble based on patient's age to complete this topic HPV Vaccines Aged Out No longer eligi ble based on patient's age to complete this topic IPV Vaccines Aged Out No longer eligi ble based on patient's age to complete this topic Meningococcal Vaccine Aged Out No hero lisa eligible based on patient's age to complete this topic RSV under 20 months Aged Out No longe r eligible based on patient's age to complete this topic Rotavirus Vaccines Aged Out No longer eligible based on patient's age to complete this topic Procedures Procedure Name Priority Date/Time Associated Diagnosis Comments POCT GLYCATED HEMOGLOBIN, TOTAL Routine 09/26/2024 11:10 AM EST Type 2 diabetes mellitus without complication, without long-term current use of insulin ([facility]) POCT GLUCOSE Routine 09/26/2024 11:08 AM EST Type 2 diabetes mellitus without complication, without long-term current use of insulin ([facility]) POCT WINIFRED-14 URINE DRUG SCREEN Routine 09/17/2024 9:33 AM EST Opioid type dependence, continuous ([facility]) POCT WINIFRED-14 URINE DRUG SCREEN Routine 08/20/2024 9:01 AM EST Opioid dependence, uncomplicated (CMS/HCC) POCT WINIFRED-14 URINE DRUG SCREEN Routine 07/23/2024 9:43 AM EST Opioid type dependence, continuous (CMS/HCC) ALBUMIN, RANDOM URINE W/CREATININE Routine 05/14/2023 10:22 AM EDT HIV ANTIBODY/ANTIGEN ([place] [facility]) Routine 05/14/2023 10:19 AM EDT LIPID PANEL, STANDARD Routine 05/14/2023 10:19 AM EDT Type 2 diabetes mellitus without complication, without long-term current use of insulin (CMS/[facility]) HM COLONOSCOPY Routine 04/18/2023 from Last 3 Months or Most Recently Relevant to Health Maintenance Results * (ABNORMAL) POCT HGB A1C (09/26/2024 11:10 AM EST) Hemoglobin A1C 6.7(A) 4.0 - 6.0 % QC [employer] Lot # [id number] Lot# Expiration Date Blood 09/26/2024 11:1 0 AM EST Linh Peralta DO POINT OF CARE TEST ENTER/CASI T ORDERABLES Final Result * (ABNORMAL) POCT Glucose (09/26/2024 11:08 AM EST) Glucose Blood, POC 212(A) 60 - 200 mg/dL [employer] Lot # [id number] Lot# Expiration Date ,025 Blood Capillary blood specimen / Unknown 09/26/2024 11:08 AM EST Linh Peralta DO POINT OF CARE TEST ENTER/CASI T ORDERABLES Final Result * POCT WINIFRED-14 Urine Drug Screen (09/17/2024 9:33 AM EST) Only the most recent of3 resultswithin the time period is included. THC Positive Cocaine Screen, Urine Negative Opiate Screen, Urine Negative Methamphetamine Screen Urine Negative Amphetamine Screen, Urine Negative Benzodiazepines Screen, Urine Negative Barbiturate Screen, Urine Negative Methadone Screen, Urine Negative Buprenophine Screen, Urine Positive TCA, Urine Negative MDMA Urine Negative ng/mL Oxycodone Screen, Urine Negative Phencyclidine (PCP), Urine Negative Propoxyphene, Urine Negative Fentanyl, Urine Negative Urine Urine specimen obtained by clean catch procedure / Unknown 09/17/2024 9:33 AM EST Boo Nunez MD POINT OF CARE TEST ENTER/EDIT OR DERABLES Final Result * Albumin, Random Urine W/Creatinine (05/14/2023 10:22 AM EDT) Creatinine, Urine 147.26 mg/dL [facility] Microalbumin Urine 7.0 mg/L [facility] Microalbum Creatinine Ratio Ur 4.7 <30 ug/mg cr [facility] Comment:Albumin/Creatinine R atio Reference Ranges: Normal: < 30 ug/mg creatinine Microalbuminuria: 30 - 300 ug/mg creatinineClinical Albuminuria: > 300 ug/mg creatinine 05/14/2023 10:2 2 AM EDT 05/14/2023 1:13 PM EDT us Linh Peralta DO LAB URINE ORDERABLES Final R esult [facility] [address] [place], [place] [phone] * HIV Ab/Ag ([facility]) (05/14/2023 10:19 AM EDT) HIV AB/AG Nonreactive Nonreactive [facility] Comment:HIV-1 p24 Ag and/or HIV-1/HIV-2 Ab not detected.A test result that is nonreactive does not exclude thepossibility of exposure to or infection with HIV-1 and/orHIV-2. Nonreactive results in this assay for individualswith prior exposure to HIV-1 and/or HIV-2 may be due toantigen and antibody levels that are below the limit ofdetection of this assay.The [employer] HIV Ag/Ab Combo assay result andsupplemental assay results should be interpreted inconjunction with the patient's clinical presentation,history and other laboratory results. If the results areinconsistent with clinical evidence, additional testing issuggested to confirm the result. 05/14/2023 10:1 9 AM EDT 05/14/2023 11:21 AM EDT us Linh Peralta DO LAB BLOOD ORDERABLES Final R esult [facility] [address] [place] [address] [phone] * (ABNORMAL) Lipid Panel, Standard (05/14/2023 10:19 AM EDT) Triglycerides 174(H) <150 mg/dL [facility] Comment:Desirable Triglyceri de: less than 150 mg/dLBorderline High Triglyceride 150-199 mg/dLHigh Triglyceride: 200-499 mg/dLVery High Triglyceride: greater than or equal to 5OO mg/dL Cholesterol 147 <200 mg/dL [facility] Comment:Desirable Cholestero l: less than 200 mg/dLBorderline High Cholesterol: 200-239 mg/dLHigh Cholesterol: greater than 239 mg/dL LDL Cholesterol Calculated 76 <100 mg/dL [facility] Comment:Desirable LDL: less than 100 mg/dLNear Optimal/Above Optimal LDL: 110- 129 mg/dLBorderline High LDL: 130-159 mg/dLHigh LDL: 160-189 mg/dLVery High LDL: greater than or equal to 190 mg/dL HDL Cholesterol 37(L) >40 mg/dL [facility] Comment:Desirable HDL: great er than 40 mg/dL Note: This HDL assay may give artificially low results in patients with liver disease. Blood Venous blood specimen / Unknown 05/14/2023 10:19 AM EDT 05/14/2023 11:21 AM EDT Linh Peralta DO LAB BLOOD ORDERABLES Final R esult Performing Organization Address [facility] Co de Phone Number [facility] [address] [place] [address] [phone] * (ABNORMAL) Colonoscopy (04/18/2023) [facility] Signature Colonoscopy Abnormal( A) Normal [facility] Comment:polyps, fair right s yogi prep Linh Peralta DO HEALTH MAINTENANCE Final Res ult Performing Organization Address [facility] Co de Phone Number [facility] [address] [place] [address] [phone] from Last 3 Months or Most Recently Relevant to Health Maintenance Insurance [facility] - [facility] Care Teams Dust Puller Relationship Specialty Start Date End Date Linh Peralta DO [address] [place] [id number] PCP - General Family Medicine 08/13/18
--- OUTSIDE RECORDS SUMMARY | 2024-09-26 12:30 | XMS_ITS | Encounter Summary ---
Author Organization [employer] Address [address] [place] [address] 7t [place] [address] Care Team Providers Care Sales Representative Door To Door Name Role Phone Linh Peralta DO Primary Care Provider [phone] Encounter Details Date Type Department Care Team (Late Contact Info) Description 10/13/2022 Abstract [facility] ADULT DENTAL [address] [place] [address] Argelia Dominguez DDS [address] [place] [address] Social History Tobacco Use Types Packs/Day Years [...] suspected to have Coronavirus/COVID-19? No / Unsure 10/11/2022 9:07 AM EST documented as of this encounter Plan of Treatment Upcoming Encounters Date Type Department Care Team (Late Contact Info) Description 10/15/2024 9:00 AM EST Office Visit [facility] MEDICINE [address] [place] [address] Boo Nunez MD [address] [place] [address] documented as of this encounter Visit Diagnoses Not on filedocumented in this encounter Additional Health Concerns Assessment Noted Time PHQ-9 Depression Total Score: 0 09/08/19 23 10:39 AM EST documented as of this encounter Care Teams Sales Representative Door To Door Relationship Specialty Start Date End Date Linh Peralta DO [address] [place] [address] PCP - General Family Medicine 08/13/18 documented as of this encounter
--- OUTSIDE RECORDS SUMMARY | 2024-09-26 12:31 | XMS_ITS | Encounter Summary ---
Author Organization [employer] Address [address] [facility] 7t [place] [address] Care Team Providers Care Directory Clerk Name Role Phone Linh Peralta DO Primary Care Provider [phone] Encounter Details Date Type Department Care Team (Latest Contact Info) Description 09/17/2024 Travel Social History Tobacco Use Types Packs/Day [...] [facility] MED[facility] [address] [place] [address] Boo Nunez MD [address] [place] [address] documented as of this encounter Visit Diagnoses Not on filedocumented in this encounter Additional Health Concerns Assessment Noted Time PHQ-9 Depression Total Score: 14 024 12:37 PM EDT documented as of this encounter Care Teams Directory Clerk Relationship Specialty Start Date End Date Linh Peralta DO [address] [place] [address] PCP - General Family Medicine 08/13/18 documented as of this encounter
--- OUTSIDE RECORDS SUMMARY | 2024-09-26 12:31 | XMS_ITS | Encounter Summary ---
Author Organization [employer] Address [address] [place] [address] 7t [place] [address] Care Team Providers Care Loss Claim Clerk Name Role Phone Linh Peralta DO Primary Care Provider [phone] Encounter Details Date Type Department Care Team (Late st Contact Info) Description 09/26/2024 11:15 AM EST Office Visit [facility] MEDICINE [address] [place] [address] Linh Peralta DO [address] [place] [address] History of hepatitis C (Primary Dx); Type 2 diabetes mellitus without complication, without long-term current use of insulin (CMS/HCC); Constipation, unspecified constipation type Social History Tobacco Use Types Packs/Day Years [...] AM EDT documented as of this encounter Last Filed Vital Signs Vital Sign Reading [...] Mass Index 26.43 09/26/2024 11:05 AM EST documented in this encounter Plan of Treatment Upcoming Encounters Date Type Department Care Team (Late st Contact Info) Description 10/15/2024 9:00 AM EST Office Visit [facility] MEDICINE [address] [place], [place] [address] Boo Nunez MD [address] [place] [address] Scheduled Orders Name Type Priority Associated Diagnoses Orde r Schedule T4, Free Lab Routine Type 2 diabetes mellitus without complication, without long-term current use of insulin (CMS/HCC) Constipation, unspecified constipation type History of hepatitis C Expected: 09/26/2024 (Approximate), Expires: 09/26/2025 Vitamin D, 25-Hydroxy, Total, Immunoassay Lab Routine Type 2 diabetes mellitus without complication, without long-term current use of insulin (CMS/HCC) Constipation, unspecified constipation type History of hepatitis C Expected: 09/26/2024 (Approximate), Expires: 09/26/2025 Lipid Panel, Standard Lab Routine Type 2 diabetes mellitus without complication, without long-term current use of insulin (CMS/HCC) Constipation, unspecified constipation type History of hepatitis C Expected: 09/26/2024 (Approximate), Expires: 09/26/2025 TSH Lab Routine Type 2 diabetes mellitus without complication, without long-term current use of insulin (CMS/HCC) Constipation, unspecified constipation type History of hepatitis C Expected: 09/26/2024 (Approximate), Expires: 09/26/2025 Hepatic Function Panel Lab Routine Type 2 diabetes mellitus without complication, without long-term current use of insulin (CMS/HCC) Constipation, unspecified constipation type History of hepatitis C Expected: 09/26/2024 (Approximate), Expires: 09/26/2025 Hemoglobin A1c Lab Routine Type 2 diabetes mellitus without complication, without long-term current use of insulin (CMS/HCC) Constipation, unspecified constipation type History of hepatitis C Expected: 09/26/2024 (Approximate), Expires: 09/26/2025 Basic Metabolic Panel Lab Routine Type 2 diabetes mellitus without complication, without long-term current use of insulin (CMS/HCC) Constipation, unspecified constipation type History of hepatitis C Expected: 09/26/2024 (Approximate), Expires: 09/26/2025 CBC Lab Routine Type 2 diabetes mellitus without complication, without long-term current use of insulin (CMS/HCC) Constipation, unspecified constipation type History of hepatitis C Expected: 09/26/2024, Expires: 09/26/2025 Albumin, Random Urine W/Creatinine Lab Routine Type 2 diabetes mellitus without complication, without long-term current use of insulin (CMS/HCC) Constipation, unspecified constipation type History of hepatitis C Expected: 09/26/2024 (Approximate), Expires: 09/26/2025 Chlamydia/N. Gonorrhoeae RNA, TMA, Urogenitial Microbiology Routine Type 2 diabetes mellitus without complication, without long-term current use of insulin (CMS/HCC) Constipation, unspecified constipation type History of hepatitis C Ordered: 09/26/2024 RPR (Monitor) with Reflex to??Titer Lab Routine Type 2 diabetes mellitus without complication, without long-term current use of insulin (CMS/HCC) Constipation, unspecified constipation type History of hepatitis C Expected: 09/26/2024, Expires: 09/26/2025 Hepatitis C Viral RNA, Quantitative, Real-Time PCR Lab Routine Type 2 diabetes mellitus without complication, without long-term current use of insulin (CMS/HCC) Constipation, unspecified constipation type History of hepatitis C Expected: 09/26/2024 (Approximate), Expires: 09/26/2025 Alpha-Fetoprotein, Tumor Marker Lab Routine Type 2 diabetes mellitus without complication, without long-term current use of insulin (CMS/HCC) Constipation, unspecified constipation type History of hepatitis C Expected: 09/26/2024 (Approximate), Expires: 09/26/2025 HIV-1/2 Antigen and Antibodies, Fourth Generation, with Reflexes Lab Routine Type 2 diabetes mellitus without complication, without long-term current use of insulin (CMS/HCC) Constipation, unspecified constipation type History of hepatitis C Expected: 09/26/2024 (Approximate), Expires: 09/26/2025 documented as of this encounter Procedures Procedure Name Priority Date/Time Associated Diagnosis Comments POCT GLYCATED HEMOGLOBIN, TOTAL Routine 09/26/2024 11:10 AM EST Type 2 diabetes mellitus without complication, without long-term current use of insulin (CMS/HCC) POCT GLUCOSE Routine 09/26/2024 11:08 AM EST Type 2 diabetes mellitus without complication, without long-term current use of insulin (CMS/HCC) documented in this encounter Results * (ABNORMAL) POCT HGB A1C (09/26/2024 11:10 AM EST) Hemoglobin A1C 6.7(A) 4.0 - 6.0 % QC Media Lot # [id number] Lot# Expiration Date Blood 09/26/2024 11:1 0 AM EST Linh Peralta DO POINT OF CARE TEST ENTER/CASI T ORDERABLES Final Result * (ABNORMAL) POCT Glucose (09/26/2024 11:08 AM EST) Glucose Blood, POC 212(A) 60 - 200 mg/dL QC Media Lot # [id number] Lot# Expiration Date Blood Capillary blood specimen / Unknown 09/26/2024 11:08 AM EST Linh Peralta DO POINT OF CARE TEST ENTER/CASI T ORDERABLES Final Result documented in this encounter Visit Diagnoses Diagnosis History of hepatitis C- Primary Personal history of other infectious and parasitic disease Type 2 diabetes mellitus without complication, without long-term current use of insulin (CMS/HCC) Constipation, unspecified constipation type documented in this encounter Additional Health Concerns Assessment Noted Time PHQ-9 Depression Total Score: 0 09/26/19 25 11:07 AM EST documented as of this encounter Care Teams Loss Claim Clerk Relationship Specialty Start Date End Date Linh Peralta DO [address] [place] [address] PCP - General Family Medicine 08/13/18 documented as of this encounter
--- OUTSIDE RECORDS SUMMARY | 2024-09-26 12:31 | XMS_ITS | Encounter Summary ---
Author Organization [employer] Address [address] [place] [address] 7t [place] [address] Care Team Providers Care Equip Maint Eng Name Role Phone Linh Peralta DO Primary Care Provider [phone] Reason for Visit * Reason Comments Pre-visit Planning SDOH screening negat gaby and tobacco screening positive Encounter Details Date Type Department Care Team (Late st Contact Info) Description 09/15/2024 Patient Outreach [facility] MEDICINE [address] [place] [address] Linh Peralta DO [address] [place] [address] Pre-visit Planning (SDOH screening negative and tobacco screening positive) Social History Tobacco Use Types Packs/Day Years [...] as of this encounter Progress Notes * Sheela Cantu - 09/15/2024 9:26 AM EST VLADISLAV Coker placed successful outbound call to patient for pre-visit planning. Patient name and confirmed. Patient confirms appointment date and time, and has transportation arrangements. Biggest concern for appointment at this time is none Appropriate screenings completed in anticipation of appointment. documented in this encounter Plan of Treatment Upcoming Encounters Date Type Department Care Team (Late st Contact Info) Description 10/15/2024 9:00 AM EST Office Visit [facility] MED[facility]INE [address] [place] [address] Boo Nunez MD [address] [place] [address] documented as of this encounter Visit Diagnoses Not on filedocumented in this encounter Additional Health Concerns Assessment Noted Time PHQ-9 Depression Total Score: 14 024 12:37 PM EDT documented as of this encounter Care Teams Equip Maint Eng Relationship Specialty Start Date End Date Linh Peralta DO [address] [place] [address] PCP - General Family Medicine 08/13/18 documented as of this encounter
--- OUTSIDE RECORDS SUMMARY | 2024-09-26 12:31 | XMS_ITS | Encounter Summary ---
Author Organization [employer] Address [address] [facility] 7t [place] [address] Care Team Providers Care State Director Name Role Phone Linh Peralta DO Primary Care Provider [phone] Encounter Details Date Type Department Care Team (Late st Contact Info) Description 09/17/2024 Refill [facility] MEDICINE [address] [place], [place] [phone] Linh Peralta DO 230 [place], [place] [phone] Opioid dependence, uncomplicated (CMS/HCC) (Primary Dx) Social [...] Description 10/15/2024 9:00 AM EST Office Visit [facility] MEDICINE [address] [place] [address] Boo Nunez MD [address] [place] [address] documented as of this encounter Visit Diagnoses Diagnosis Opioid dependence, uncomplicated (CMS/HCC)- Primary documented in this encounter Additional Health Concerns Assessment Noted Time PHQ-9 Depression Total Score: 14 024 12:37 PM EDT documented as of this encounter Care Teams State Director Relationship Specialty Start Date End Date Linh Peralta DO [address] [place] [address] PCP - General Family Medicine 08/13/18 documented as of this encounter
--- OUTSIDE RECORDS SUMMARY | 2024-09-26 12:31 | XMS_ITS | Encounter Summary ---
Author Organization [employer] Address [address] [place] [address] [address] [place] [address] Care Team Providers Care V Belt Finisher Name Role Phone Linh Peralta DO Primary Care Provider [phone] Reason for Visit * Reason Onset Date Comments Durable Medical Equipment 10/30/2022 Encounter Details Date Type Department Care Team (Late st Contact Info) Description 10/30/2022 Telephone [facility] MEDICINE [address] [place] [address] Linh Peralta DO [address] [place] [address] Durable Medical Equipment Social History Tobacco Use Types Packs/Day Years [...] suspected to have Coronavirus/COVID-19? No / Unsure 11/01/2022 9:04 AM EDT documented as of this encounter Miscellaneous Notes * Telephone Encounter - Malou Colon - 10/30/2022 2:14 PM EDT Scripts for mat and shower chair generated for signature * Telephone Encounter - Blanca Herrera - 10/30/2022 1:50 PM EDT Tc from Felisha with N requesting a Shower chair and a Non slip mat for pt. Please contact Felisha at [phone] documented in this encounter Plan of Treatment Upcoming Encounters Date Type Department Care Team (Late st Contact Info) Description 10/15/2024 9:00 AM EST Office Visit [facility] MEDICINE [address] [place] [phone] Boo Nunez MD [address] [place] [address] documented as of this encounter Visit Diagnoses Not on filedocumented in this encounter Additional Health Concerns Assessment Noted Time PHQ-9 Depression Total Score: 0 09/08/19 23 10:39 AM EST documented as of this encounter Care Teams V Belt Finisher Relationship Specialty Start Date End Date Linh Peralta DO [address] [place] [address] PCP - General Family Medicine 08/13/18 documented as of this encounter
--- OUTSIDE RECORDS SUMMARY | 2024-09-26 12:31 | XMS_ITS | Encounter Summary ---
Author Organization [employer] Address [address] [place] [address] 7t [place] [address] Care Team Providers Care Mine Geologist Name Role Phone Lnih Peralta DO Primary Care Provider + [phone] Reason for Visit * Reason Comments Recovery Supports Encounter Details Date Type Department Care Team ([facility] st Contact Info) Description 09/16/2024 Patient Outreach [facility] MEDICINE [address] [place] [address] Joesph Bajwa [address] [place] [address] Recovery Supports Social History Tobacco Use Types [...] encounter Progress Notes * Joesph Bajwa - 09/16/2024 4:33 PM EST I met with Bernardo keita. Setting: in person at [facility] Recovery Wellness Goals worked on: Social Stability Action taken/next steps: Attended recovery support group Additional comments: Participant attended a group session centered on recovery topics, where members engaged in open discussion and offered mutual support Joesph Bajwa documented in this encounter Plan of Treatment Upcoming Encounters Date Type Department Care Team (Late st Contact Info) Description 10/15/2024 9:00 AM EST Office Visit [facility] MEDICINE [address] [place] [address] Boo Nunez MD [address] [place] [address] documented as of this encounter Visit Diagnoses Not on filedocumented in this encounter Additional Health Concerns Assessment Noted Time PHQ-9 Depression Total Score: 14 024 12:37 PM EDT documented as of this encounter Care Teams Mine Geologist Relationship Specialty Start Date End Date Linh Peralta DO [address] [place] [address] PCP - General Family Medicine 08/13/18 documented as of this encounter
--- OUTSIDE RECORDS SUMMARY | 2024-09-26 12:31 | XMS_ITS | Encounter Summary ---
Author Organization [employer] Address [address] [place] [address] 7t [place] [address] Care Team Providers Care Supervisory Lifeguard Name Role Phone Linh Peralta DO Primary Care Provider + [phone] Reason for Visit * Reason Comments GBOT F/U Encounter Details Date Type Department Care Team ([facility] st Contact Info) Description 09/17/2024 9:00 AM EST Office Visit [facility] MEDICINE [address] [place] [address] Boo Nunez MD [address] [place] [address] Opioid type dependence, continuous (CMS/HCC) (Primary Dx) Social History Tobacco Use [...] Progress Notes * Boo Nunez MD - 09/17/2024 9:00 AM EST Patient has been in program for 14 years 7 months. INDUCTION DATE: 01/21/2010 Patient enrolled in behavioral health program. He is seeing Dr. Magdaleno at [facility]. Current dose of Suboxone is 24/6mg SL daily Yearly LFT''s completed: 05/14/2023 Hep A: Immune Hep B: Immune COVID: #1 rec'd 10/29/20; #2 rec'd 11/26/20. Booster received on 08/16/21 LAST PCP appt: 02/21/2024 Undergone Epclusa for Hep C treatment LAST GBAT VISIT 09/03/2024 Last UTOX (08/20/2024): POS THC, BUP Patient presents for Group-Based Opioid Treatment for OUD Reviewed the group goals, expectations and policies Consented to the group treatment options Actively participated in the group discussion with the topic of: Extended Check-In Following staff present at the visit: Physician, Store Consultant, Clinician, Team RN, and MedicalAssistant Opportunities provided to address individual medical/medication/BH concerns States doing well without cravings or relapse TODAY GBAT VISIT 09/17/2024 UTOX: POS BUP, THC NEG FOR ALL OTHER SUBSTANCES Patient presents for Group-Based Opioid Treatment for OUD Reviewed the group goals, expectations and policies Consented to the group treatment options Actively participated in the group discussion with the topic of: Strategies for Maintaining the Process of Recovery Following staff present at the visit: Physician, Store Consultant, Clinician, Team RN, and MedicalAssistant Opportunities provided [...] Behavior normal. Bernardo was seen today for gbot f/u. Diagnoses and all orders for this visit: Opioid type dependence, continuous ([facility]) (Primary) - POCT WINIFRED-14 Urine Drug Screen Patient presents for Group-Based Addiction Treatment of [...] faced situations that may trigger use Mass BARBER APPRENTICE reviewed Following staff present at the visit: Physician, Team RN, Clinician, Store Consultant and Health Services Information Specialist Follow up in 1 week for the [...] Visit [facility] MEDICINE [address] [place] [address] Boo Nunez MD [address] [place] [address] documented as of this encounter Procedures Procedure Name Priority Date/Time Associated Diagnosis Comments POCT WINIFRED-14 URINE DRUG SCREEN Routine 09/17/2024 9:33 AM EST Opioid type dependence, continuous (CMS/HCC) documented in this encounter Results * POCT WINIFRED-14 Urine Drug Screen (09/17/2024 9:33 AM EST) THC Positive Cocaine Screen, Urine Negative Opiate [...] CARE TEST ENTER/EDIT OR DERABLES Final Result documented in this encounter Visit Diagnoses Diagnosis Opioid type dependence, continuous (CMS/HCC)- Primary Opioid type dependence, continuous documented in this encounter Additional Health Concerns Assessment Noted Time PHQ-9 Depression Total Score: 14 024 12:37 PM EDT documented as of this encounter Care Teams Supervisory Lifeguard Relationship Specialty Start Date End Date Linh Peralta DO [address] [place] [address] PCP - General Family Medicine 08/13/18 documented as of this encounter
--- OUTSIDE RECORDS SUMMARY | 2024-09-26 12:31 | XMS_ITS | Encounter Summary ---
Author Organization [employer] Address [address] [place] [address] 7t [place] [address] Care Team Providers Care Central Office Worker Name Role Phone Linh Peralta DO Primary Care Provider + [phone] Reason for Visit * Reason Comments Recovery Supports Encounter Details Date Type Department Care Team ([facility] st Contact Info) Description 09/15/2024 Patient Outreach [facility] MEDICINE [address] [place] [address] Joesph Bajwa [address] [place] [address] Recovery Supports Social History Tobacco Use Types [...] encounter Progress Notes * Joesph Bajwa - 09/15/2024 4:21 PM EST I met with Bernardo keita. Setting: in person at [facility] Recovery Wellness Goals worked on: Physical Health/Mental [...] Description 10/15/2024 9:00 AM EST Office Visit [facility] MEDICINE [address] [place] [address] Boo Nunez MD [address] [place] [address] documented as of this encounter Visit Diagnoses Not on filedocumented in this encounter Additional Health Concerns Assessment Noted Time PHQ-9 Depression Total Score: 14 024 12:37 PM EDT documented as of this encounter Care Teams Central Office Worker Relationship Specialty Start Date End Date Linh Peralta DO [address] [place] [address] PCP - General Family Medicine 08/13/18 documented as of this encounter
[2024-09-26 13:21] LABS: Hematocrit 40.5 % (42.0-52.0); Hemoglobin 13.3 g/dl (14.0-18.0); Mean Corpuscular HGB Conc 32.8 g/dl (31.0-36.0); Mean Corpuscular Hemoglobin 27.8 pg (27.0-33.0); Mean Corpuscular Volume 84.6 fL (80.0-98.0); Mean Platelet Volume 10.1 fL (9.4-12.4); Platelet Count 300 X10*3/uL (160-400); Red Blood Count 4.79 X10*6/uL (4.60-5.80); Red Cell Distribution Width 12.3 % (11.0-16.0); White Blood Count 6.8 X10*3/uL (4.8-10.8)
[2024-09-26 13:43] LABS: Creatinine Urine 181.02 mg/dL; Microalbum/Creatinine Ratio Ur 8.2 ug/mg cr (<30)
[2024-09-26 13:46] LABS: Estimated Average Glucose 137 mg/dL; Hemoglobin A1c % 6.4 % (<6.0); Total Hemoglobin (HGBA1C) 3508.1827 umol/L
[2024-09-26 13:48] LABS: Alanine Aminotransferase 32 U/L (0-40); Albumin Level 4.7 g/dL (3.5-5.0); Alkaline Phosphatase 70 U/L (39-117); Anion Gap 12 (12-20); Aspartate Amino Transferase 29 U/L (5-37); Bilirubin Direct 0.2 mg/dL (0.0-0.5); Bilirubin Total 0.4 mg/dL (0.0-1.0); Blood Urea Nitrogen 14 mg/dL (9-16); Calcium 9.7 mg/dL (8.4-10.2); Carbon Dioxide 27 mmol/L (22-29); Chloride 104 mmol/L (96-108); Cholesterol 146 mg/dL (<200); Estimated Glomerular Filt Rate > 60; Glucose Random 141 mg/dL (60-115); HDL Cholesterol 36 mg/dL (>40); LDL Cholesterol Calculated 95 mg/dL (<100); Potassium 3.5 mmol/L (3.3-5.1); Sodium 139 mmol/L (135-145); Total Protein 8.1 g/dL (6.5-8.0); Triglycerides 78 mg/dL (<150)
[2024-09-26 14:05] LABS: Free T4 (Free Thyroxine) 1.07 ng/dL (0.71-1.85); Thyroid Stimulating Hormone 0.58 uIU/mL (0.32-4.0); Vitamin D 25-OH Total 58.7 ng/mL (>30)
[2024-09-26 16:20] LABS: CT PCR NOT DETECTED (Not Detect.); NG PCR NOT DETECTED (Not Detect.)
[2024-09-27 03:34] LABS: HIV AB/AG Nonreactive (Nonreactive); HIV Num 1 0.05 S/CO (0.00-0.99)
[2024-09-28 23:35] LABS: RPR Rapid Plasma Reagin NON-REACTIVE (NON-REACTIVE)
[2024-09-29 13:33] LABS: Alpha Fetoprotein 0.9 ng/mL (<6.1)
[2024-09-29 17:23] LABS: HCV Log PCR <1.18 NOT DETECTED Log IU/mL (NOT DETECTED); HepC Viral Load <15 NOT DETECTED IU/mL (NOT DETECTED)
== END 2024-09-26 11:50 | disposition home or self-care (01) ==
LOC: HO.HHCL 11:49
PROVIDERS: Visit Provider Family Medicine
DX: K59.00 Constipation, unspecified (principal); E11.9 Type 2 diabetes mellitus without complications; Z86.19 Personal history of other infectious and parasitic diseases
CPT/HCPCS: 80048; 80061; 80076; 82043; 82105; 82306; 82570; 83036; 84439; 84443; 85027; 86592; 87389; 87491; 87522; 87591